=== PATIENT | male | born 1960 | race Caucasian/White ===

== ENCOUNTER 2019-02-14 09:58 | Outpatient (CLI) | payer OTHER, SELFPAY ==
--- NOTE | 2019-02-14 12:53 | DI.RAD_ITS ---
EXAM: XR HIP RT COMPLETE AP PELVIS INDICATION: r hip pain, M25.551. COMPARISON: No exams were available for comparison TECHNIQUE: 2D digital imaging was performed. FINDINGS: There is moderate narrowing of the right hip joint space. Mild subchondral sclerosis is seen in the right acetabulum. The left hip is well maintained. The sacroiliac joints are unremarkable. There i s mild sclerosis seen at the symphysis pubis. No acute fracture or dislocation is identified. The s oft tissues are unremarkable. IMPRESSION: Ryop-kq-zslritpv degenerative changes of the right hip.
--- NOTE | 2019-02-14 12:57 | DI.RAD_ITS ---
EXAM: XR LUMBAR SPINE COMPLETE INDICATION: right LBP and leg pain, M54.5. COMPARISON: No exams were available for comparison TECHNIQUE: 2D digital imaging was performed. FINDINGS: There is partial sacralization of L5. There is spondylolysis of L4. There is grade 1 spondylolisthe sis of L4 on L5. Endplate osteophytes throughout the lumbar spine. Disc space narrowing is seen at L1-L2 and L4-L5. There is a vacuum disc at L4-L5. There are degenerative changes of the facets thro ughout the lumbar spine. The bones are normally mineralized. No acute fracture or subluxation is pr esent. IMPRESSION: 1. Moderately severe degenerative changes in the lumbar spine. 2. L4 spondylolysis and grade 1 spondylolisthesis of L4 on L5.
== END 2019-02-14 10:18 ==
PROVIDERS: PCP Family Medicine; Visit Provider Family Medicine
DX: M25.551 Pain in right hip (principal); M16.11 Unilateral primary osteoarthritis, right hip; M54.5 Low back pain; M79.604 Pain in right leg; M43.06 Spondylolysis, lumbar region; M43.16 Spondylolisthesis, lumbar region; M47.816 Spondylosis without myelopathy or radiculopathy, lumbar region
CPT/HCPCS: 72110; 73502

== ENCOUNTER 2019-04-01 03:39 | Outpatient (CLI) | payer OTHER, SELFPAY ==
--- NOTE | 2019-04-01 07:45 | DI.RAD_ITS ---
EXAM: XR SHOULDER RT COMPLETE 2+V INDICATION: SHOULDER PAIN RT, M25.511. COMPARISON: No exams were available for comparison TECHNIQUE: 2D digital imaging was performed. FINDINGS: There are mild degenerative changes seen at the shoulder. The bones are intact and normally minerali zed. The soft tissues are unremarkable. IMPRESSION: Degenerative changes of the right shoulder.
--- NOTE | 2019-04-01 07:45 | DI.RAD_ITS ---
EXAM: XR KNEE RT 3V AP,LAT,AMOR INDICATION: Chronic pain right knee getting worse, M25.561. COMPARISON: No exams were available for comparison TECHNIQUE: 2D digital imaging was performed. FINDINGS: There are degenerative changes of the right knee characterized by moderate joint space narrowing and periarticular spurring in the medial femoral tibial joint space and periarticular spurring in the lat eral femoral tibial joint and the patellofemoral joint. IMPRESSION: Osteoarthritis of the right knee.
--- NOTE | 2019-04-01 07:45 | DI.RAD_ITS ---
EXAM: XR SHOULDER LT COMPLETE 2+V INDICATION: SHOULDER PAIN LT, M25.512. COMPARISON: XR SHOULDER RT COMPLETE 2+V from 04/01/2019 TECHNIQUE: 2D digital imaging was performed. FINDINGS: There are jhhf-hz-eldhedzx degenerative changes of the left knee characterized by periarticular spurr ing and subchondral sclerosis. The bones are intact. The soft tissues are unremarkable.
== END 2019-04-01 03:59 ==
PROVIDERS: PCP Family Medicine; Visit Provider Family Medicine
DX: M25.511 Pain in right shoulder (principal); M19.011 Primary osteoarthritis, right shoulder; M25.561 Pain in right knee; M17.11 Unilateral primary osteoarthritis, right knee; M25.512 Pain in left shoulder; M19.012 Primary osteoarthritis, left shoulder
CPT/HCPCS: 73562; 73030

== ENCOUNTER 2019-04-26 00:25 | Outpatient (CLI) | payer OTHER, SELFPAY ==
--- NOTE | 2019-04-26 10:45 | DI.MRI_ITS ---
EXAM: MR LUMBAR SPINE WO CLINICAL HISTORY: PAIN RADIATING DOWN RIGHT LEG, RT LUMBAR RADICULOPATHY, M54.16. TECHNIQUE: Multiplanar multisequence MRI of the Lumbar spine was performed. COMPARISON: RENAL COLIC WO CONTRAST from 07/08/2011 FINDINGS: Bones: The last intervertebral disc space is designated the L5/S1 level for the numbering purpose of this examination. The vertebral body heights are well maintained. There is L4 spondylolysis and gra de 1 spondylolisthesis of L4 on L5. This is stable compared to the CT scan from 07/08/2011. There are degenerative endplate signal changes at multiple levels of the lumbar spine. Cord: The conus tip ends at the L1 level. It is of normal size and signal intensity. L1-2: No focal disc herniation or central spinal canal stenosis is present. There is mild bilateral neural foraminal narrowing. L2-3: No focal disc herniation or central spinal canal stenosis is present. No significant right bethel ral foraminal stenosis is present. There is mild left neural foraminal stenosis. L3-4: No focal disc herniation or central spinal canal stenosis is present. There are mild degenera tive changes of the facets. There is mild bilateral neural foraminal narrowing. L4-5: No disc herniations or bulges are present. There are degenerative changes of the facets. The findings result in sfrj-sw-uughzhgu central spinal canal stenosis. There is severe right and moderat tiffanie severe left neural foraminal stenosis. There is disc desiccation present. L5-S1: No disc herniations or bulges are present. No significant central spinal canal or neural fora france stenosis is present. There are degenerative changes of the facets. Soft tissues: The visualized SI joints and sacrum are well maintained. The paraspinal soft tissues ar e unremarkable. IMPRESSION: 1. Multilevel degenerative changes throughout the lumbar spine. Findings result in multilevel centra l spinal canal and neural foraminal stenosis as described above. 2. L4 spondylolysis and grade 1 spondylolisthesis of L4 on L5. This in conjunction with the degenera tive changes causes central and neural foraminal stenosis. DATA REPOSITORY:
== END 2019-04-26 00:45 ==
PROVIDERS: PCP Family Medicine; Visit Provider Family Medicine
DX: M54.16 Radiculopathy, lumbar region (principal); M51.17 Intervertebral disc disorders with radiculopathy, lumbosacral region; M43.17 Spondylolisthesis, lumbosacral region; M43.07 Spondylolysis, lumbosacral region
CPT/HCPCS: 72148

== ENCOUNTER 2019-06-17 11:30 | Outpatient (CLI) | payer OTHER, SELFPAY ==
--- NOTE | 2019-06-17 | DI.RAD_ITS ---
EXAM: XR LUMBAR SPINE AP, LAT CLINICAL HISTORY: EVALUATE SLIP AT L 4-5 FOR EVIDENCE OF INSTABILITY. TECHNIQUE: 2D digital imaging was performed. COMPARISON: MR LUMBAR SPINE WO from 04/26/2019 FINDINGS: Lateral flexion and extension views of the lumbar spine were obtained. There is again seen L4 spondylolysis and grade 1 spondylolisthesis of L4 on L5. There is no change w ith flexion or extension when compared to the MRI of the lumbar spine from 04/26/2019. Moderate degen erative changes are present throughout the lumbar spine with disc space narrowing, endplate osteophyt es and facet arthropathy. IMPRESSION: Stable grade 1 spondylolisthesis of L4 on L5 with flexion and extension. DATA REPOSITORY: RADIATION DOSE DELIVERED:
== END 2019-06-17 11:50 ==
PROVIDERS: PCP Family Medicine; Visit Provider Physician Assistant Medical
DX: M43.16 Spondylolisthesis, lumbar region (principal); M47.816 Spondylosis without myelopathy or radiculopathy, lumbar region
CPT/HCPCS: 72100

== ENCOUNTER 2019-07-12 11:54 | Outpatient (CLI) | payer OTHER, SELFPAY ==
--- NOTE | 2019-07-12 12:38 | PDOC.PAIN ---
Pain Clinic Procedure Note Procedure Note Procedure Note: LUMBAR / SACRAL TRANSFORAMINAL INJECTION Pre-operative diagnosis: lumbar radiculopathy Post-operative diagnosis: same as above MONIKA PULLIAM has been referred [facility] the [facility] for a transforaminal nerve root block and steroid injection. COMMENTS: patient was evaluated by Ms Cassie Iqbal APRN in our pain clinic for right leg pain. He has a history of right hip osteoarthritis as well as degenerative L4-5 spondylolisthesis with right L4/L5 radiculopathy. He is here for a right L4 TFESI as both diagnostic and potentially therapeutic modality for his right leg pain. Patient was interviewed and the medical record reviewed. There were no medical, pharmacologic, radiographic or other structural contraindications to attempting fluoroscopically guided transforaminal nerve root block and epidural steroid injection. Risks and expected side effects as well as potential benefit of the procedure were reviewed and voiced concerns addressed. The printed consent form was signed and witnessed. Standard time-out procedure was performed. Patient was placed in the prone position on the fluoroscopy table and automated blood pressure cuff and pulse oximeter applied. Fluoroscopy was utilized to identify the RIGHT neural foramen between L4 and L5 . A skin eliu was made for the needle insertion site. A Chlorhexadine prep was carried out, and sterile drapes were applied. Local anesthesia was achieved in the skin and subcutaneous tissues. A 22 gauge 5'' curved tip spinal needle was then inserted, advanced with fluoroscopic guidance into the neural foramen, confirmed on the lateral view. After negative aspiration, 2 ml of Omnipaque 240 was injected confirming position in A/P and lateral views. This showed a good spread of dye transforaminally into the epidural space. There was no vascular update with contrast injection under continuous fluoroscopy and digital substraction. 15 mg of Dexamethasone was injected, followed by ~1 ml of 1% Xylocaine flush for the nerve root block, as well. There was no unusual discomfort expressed.The needle was withdrawn. The patient tolerated the procedure well. A Band-Aid was applied. Vital signs were stable throughout the procedure and were as recorded in nursing records. If given, dosages of intravenous drugs for anxiolysis and analgesia were documented in nursing records. Follow up plans and appointments were discussed. Post procedure instruction was given as documented in nursing records and patient was discharged in the care of an identified retail delivery driver. COMMENTS: Patient tolerated procedure well. Pre-procedure VAS score reported as 7 out of 10 and post-procedure VAS score reported as 1 out of 10. Please note that patient has L4-5 spondylolisthesis and skewed view of AP lumbar spine, an image was taken that includes the last floating rib as reference and counting of lumbar levels. I personally performed the entire procedure. Juvenal Olivarez MD Pain Management CC: David Comer MD
[2019-07-12 12:43] VITALS: BP 108/78; PULSE 74; RESP 16; TEMP 36.8; O2SAT 95
[2019-07-12] MEDS: Dexamethasone Sod. Phos./Pres-Free 10 MG/ML VIAL IJ (13:10)
[2019-07-12] MEDS: Omnipaque 240 MG/ML 50 ML BTL IJ (13:11)
[2019-07-12 13:13] VITALS: BP 121/78; PULSE 85; RESP 18; O2SAT 98
--- NOTE | 2019-07-12 13:18 | DI.RAD_ITS ---
EXAM: XR PAIN CLINIC LUMBAR SP 2V CLINICAL HISTORY: dx: Lumbar Radiculopathy. TECHNIQUE: Fluoroscopy was provided for the referring physician for guidance with performing pain cl inic injection procedure. COMPARISON: No exams were available for comparison FINDINGS: Please see procedure note for details. Fluoro time: 67.7 sec, 36.48 mGy RADIATION DOSE DELIVERED:
== END 2019-07-12 12:14 ==
PROVIDERS: PCP Family Medicine; Visit Provider Internal Medicine
DX: M54.16 Radiculopathy, lumbar region (principal)
CPT/HCPCS: 64483; 72100; Q9967

== ENCOUNTER 2019-08-02 10:03 | Outpatient (CLI) | payer OTHER, SELFPAY ==
--- NOTE | 2019-08-02 09:45 | DI.RAD_ITS ---
EXAM: XR SHOULDER RT COMPLETE 2+V INDICATION: pain and ? bicep tear. COMPARISON: CR XR SHOULDER LT COMPLETE 2+V from 04/01/2019 TECHNIQUE: 2D digital imaging was performed. FINDINGS: There is mild spurring at the tip of the acromion. The glenohumeral joint space is well maintained. There is moderate spurring at the glenoid and inferior humeral head as well as greater and lesser t uberosities. A calcification projects at the anteromedial aspect of the proximal humeral shaft. IMPRESSION: Moderate degenerative changes. DATA REPOSITORY: RADIATION DOSE DELIVERED:
== END 2019-08-02 10:23 ==
PROVIDERS: PCP Family Medicine; Referring Provider Family Medicine; Visit Provider Student in an Organized Health Care Education/Training Program
DX: M25.511 Pain in right shoulder (principal); M19.011 Primary osteoarthritis, right shoulder
CPT/HCPCS: 73030

== ENCOUNTER 2019-08-08 00:46 | Outpatient (CLI) | payer OTHER, SELFPAY ==
--- NOTE | 2019-08-08 10:45 | DI.MRI_ITS ---
EXAM: MR UPPER JOINT RT WO CLINICAL HISTORY: Right long head biceps tendon rupture, bursitis rt shoulder, S46.211A. TECHNIQUE: Multiplanar multisequence MRI was performed. CONTRAST MATERIAL: IV Contrast: mL of Dotarem contrast administered. COMPARISON: None. FINDINGS: There is a complete tear of the tendon of the long head of the biceps. The tendon is retracted and l ies approximately 15 cm proximal to the humeral epicondyles. There is fluid surrounding the torn ten don. The biceps muscle shows normal signal and size. There are degenerative signal changes at the acromioclavicular joint in the humeral head and in the g lenoid. No evidence of an occult fracture is seen. Hyperintense signal is seen in the supraspinatus tendon at its insertion site consistent with a parti al tear. There is tendinosis of the infraspinatus tendon. The teres minor tendon is unremarkable. Increased signal is seen in the subscapularis tendon at its insertion site. This may represent tendi nosis and/or partial tear. There are degenerative changes seen at the glenohumeral joint. There is fluid seen in the subacromial bursa. The rotator cuff muscles show normal signal and size. No significant fatty atrophy is seen. The tra nsverse ligament appears intact. The glenoid labrum appears grossly unremarkable on this noncontrast examination. IMPRESSION: 1. Tear and retraction of the long head of the biceps tendon. Tendon is seen along the diaphysis of the humerus approximately 15 cm proximal to the humeral epicondyles. 2. Partial tear of the supraspinatus tendon. 3. Partial tear and/or tendinosis of the subscapularis tendon.. DATA REPOSITORY:
== END 2019-08-08 01:06 ==
PROVIDERS: PCP Family Medicine; Visit Provider Student in an Organized Health Care Education/Training Program
DX: M25.511 Pain in right shoulder (principal); M75.51 Bursitis of right shoulder; S46.211A Strain of muscle, fascia and tendon of other parts of biceps, right arm, initial encounter; M75.101 Unspecified rotator cuff tear or rupture of right shoulder, not specified as traumatic; M75.81 Other shoulder lesions, right shoulder
CPT/HCPCS: 73221

== ENCOUNTER 2019-10-06 00:47 | Outpatient (CLI) | payer OTHER, SELFPAY ==
--- NOTE | 2019-10-06 07:45 | DI.RAD_ITS ---
EXAM: RF JOINT INJECTION FLUORO GUID CLINICAL HISTORY: PAIN,R HIP INJ UNDER FLUORO,M16.11,DEGENERATIVE JOINT DISEASE,M16.11. TECHNIQUE: 2D and realtime digital imaging was performed. COMPARISON: No exams were available for comparison FINDINGS: Fluoroscopy was provided for guidance with performing a right hip injection. Hard copy image shows a needle projecting at the margin of the right femoral head and injection of a small amount contrast. Please see procedure note for details. Fluoro time: 4 sec, 6.93 mGy RADIATION DOSE DELIVERED:
[2019-10-06] MEDS: Bupivacaine 0.5% Pres-Free 10 ML VIAL IJ (14:08)
[2019-10-06] MEDS: methylPREDNISolone ACETATE 40 MG/ML VIAL IM (14:09)
[2019-10-06] MEDS: Omnipaque 300 MG/ML 10 ML BTL IJ (14:09)
--- NOTE | 2019-10-06 14:15 | W.PROCNOTE ---
Date of service: 10/06/19 Time of Service: 14:01 Procedure Note Date of procedure: 10/06/19 Procedure: Right Hip Injection with Fluoroscopic Guidance Surgeon/Proceduralist/Physician: Imer Larsen Procedure Diagnosis: Right Hip Osteoarthritis Procedure Indications: Russ has had persistent pain of the RIGHT hip and groin as well as the low back. He is scheduled for lumbar spinal surgery but has concerns about the hip and hip pain. To serve as both diagnostic and therapeutic, an injection under fluoroscopy was recommended. I had discussed the risks of the procedure and the patient elected to proceed. Procedure Description: Russ was greeted in the flouroscopy room. The correct side was identified and the consent was reviewed with the patient and signed. The patient was then placed in the supine position on the fluoroscopy table. The RIGHT hip was then prepped with Chloraprep. The anterolateral injection starting point was identiifed by bony landmarks and fluoroscopy. The skin and soft tissue in the tract of the injection was anesthetized with 1% Lidocaine. A spinal needle was then inserted deep into the hip joint at the level of the lateral femoral neck under fluoroscopic guidance. A small amount of Omnipaque solution was injected to confirm intraarticular placement. Once confirmed, the hip was injected with 6cc of 0.5% Bupivicaine and 80mg of Depo-Medrol. A bandaid was placed on the injection site. The patient tolerated the procedure well.
== END 2019-10-06 01:07 ==
PROVIDERS: PCP Nurse Practitioner Family; Visit Provider Student in an Organized Health Care Education/Training Program
DX: M16.11 Unilateral primary osteoarthritis, right hip (principal); M25.551 Pain in right hip; R10.31 Right lower quadrant pain
CPT/HCPCS: 77002; J1030

== ENCOUNTER 2019-10-06 13:51 | Outpatient (REF) | payer OTHER, SELFPAY ==
[2019-10-06 14:25] LABS: HCT 41.8 % (40.0-50.0); HGB 13.2 g/dL (13.5-17.5); MCH 28.6 pg (27.0-33.0); MCHC 31.6 % (32.0-36.0); MCV 90.5 fL (80-95); MPV 9.8 fL (8.0-11.0); Platelet Count 281 10^3/uL (130-400); RBC 4.62 10^6/uL (4.36-5.78); RDW 14.1 % (11.8-14.1); RDW-SD 46.8 fL; WBC 5.16 10^3/uL (4.4-10.8)
[2019-10-06 14:41] LABS: ALT 26 U/L (16-63); AST 17 U/L (15-37); Albumin 3.8 g/dL (3.4-5.0); Alkaline Phosphatase 67 U/L (46-116); Anion Gap 7.9 mmol/L (3-11); BUN 17 mg/dL (7-18); Bilirubin, Total 0.4 mg/dL (0.2-1.0); CO2 28.1 mmol/L (21.0-32.0); CREATININE 0.92 mg/dL (0.70-1.30); Calcium 9.2 mg/dL (8.5-10.1); Calculated LDL 123 mg/dL (<100); Chloride 104 mmol/L (98-107); Cholesterol 187 mg/dL (<200); Glucose 109 mg/dL (74-106); HDL Cholesterol 55 mg/dL (40-60); Potassium 4.9 mmol/L (3.5-5.1); Sodium 140 mmol/L (136-145); Total Protein 7.1 g/dL (6.4-8.2); Triglyceride 49 mg/dL (<150)
[2019-10-06 14:49] LABS: Hemoglobin A1C 5.9 % (3.8-5.6)
== END 2019-10-06 14:11 ==
LOC: LBN 13:51
PROVIDERS: PCP Nurse Practitioner Family; Visit Provider Nurse Practitioner Family
DX: I10 Essential (primary) hypertension (principal); Z01.818 Encounter for other preprocedural examination
CPT/HCPCS: 80053; 80061; 85027; 83036

== ENCOUNTER 2019-10-11 00:02 | Outpatient (CLI) | payer OTHER, SELFPAY ==
--- NOTE | 2019-10-11 06:30 | DI.NM_ITS ---
APPROVED REPORT Exam: Pharmacologic Patient Location: Out-Patient Room/Bed: Stress Nurse: Mary Alex RN BMI: 36.40 Baseline Rhythm: Sinus Rhythm Comment: st elevation, consider inferior injury Indications: Pre-Operative CV Evaluation Medical History Medical History: HTN Cardiac Medications: Lisinopril/hctz, Allergies: amlodipine Cardiac Risk Factors: HTN, FHX of CAD Pretest Chest Pain Characteristics: No chest pain Exercise History: Physically active Physical Disabilities: Hips, Back Lung Sounds: Clear to auscultation Heart Sounds: Regular Stress Test Details Test: Pharmacologic stress testing performed using 0.4 mg of regadenoson per 5 mL given IV over 10 s econds. Nuclear Acquisition: Rest Tc-99m/Stress Tc-99m 1 day Rest Isotope: Tc-99m Sestamibi. Dose: 11.8 Date: 10/11/2019 Injection Time: 0845 Stress Isotope: Tc-99m Sestamibi. Dose: 34.5 Date: 10/11/2019 Injection Time: 1015 HR Resting HR Supine: 66 bpm Max Heart Rate (APMHR): 161 bpm Target HR (85% APMHR): 136 bpm Max HR Achieved: 98 bpm % of APMHR: 60 Recovery HR: 72 bpm HR response to stress: Normal HR response to stress BP Resting BP Supine: 130/90 mmHg Max BP: 134/90 mmHg Recovery BP: 134/88 mmHg BP response to stress: Normal blood pressure response to stress. ECG Resting ECG: Sinus Rhythm st elevation, consider inferior injury Ectopy: rare apc Stress ECG: Sinus Rhythm Arrhythmia: None Recovery ECG: Sinus Rhythm Clinical Reason for Termination: vs returned to baseline Stress Symptoms: Headache Exercise duration: 6 min01 sec Exercise capacity: 1 METs Stress ECG Conclusion 1. This was a pharmacological stress test. 2. The patient had no symptom suggestive of ischemia. 3. The EKG portion of this exam was nondiagnostic. Critical Notification Critical Value: No MPI Conclusion Ejection fraction was 42% with stress. There were no wall motion abnormalities. There is no evidence of ischemia on the imaging portion of the exam. This represents a normal SPECT stress test. Radiologist Interpretation Radiologist agrees with Road Design Draftsperson's Interpretation. Radiologist Interpretation by: Hardik Reynolds MD Interpretation Date/Time: 10/11/2019 14:46:09
[2019-10-11] MEDS: Regadenoson 0.4 MG/5 ML SYR IVP (10:46)
== END 2019-10-11 00:22 ==
PROVIDERS: PCP Nurse Practitioner Family; Visit Provider Nurse Practitioner Family
DX: R94.31 Abnormal electrocardiogram [ECG] [EKG] (principal); Z01.818 Encounter for other preprocedural examination; Z82.49 Family history of ischemic heart disease and other diseases of the circulatory system; I10 Essential (primary) hypertension
CPT/HCPCS: 78452; 93017; J2785

== ENCOUNTER 2020-02-16 01:32 | Outpatient (CLI) | payer OTHER, SELFPAY ==
--- NOTE | 2020-02-16 14:25 | DI.RAD_ITS ---
EXAM: RF JOINT INJECTION FLUORO GUID CLINICAL HISTORY: R HIP INJ UNDER FLUORO, DJD RT HIP, M16.11, PRIMARY OA RT HIP TECHNIQUE: 2D and realtime digital imaging was performed. CONTRAST MATERIAL: Refer to procedure report. COMPARISON: No exams were available for comparison FINDINGS: Fluoroscopy was provided for orthopedic during right hip joint injection. Please refer to the proced ure report for complete details. Distal tip needle is position at the junction of the femoral head a nd neck. Intra-articular contrast evident Fluoro time: 6 seconds IMPRESSION:
[2020-02-16] MEDS: Omnipaque 300 MG/ML 10 ML BTL IJ (14:39)
[2020-02-16] MEDS: methylPREDNISolone ACETATE 80 MG/ML VIAL IM (14:41)
[2020-02-16] MEDS: Bupivacaine 0.5% Pres-Free 10 ML VIAL 6 ML IV (14:41)
--- NOTE | 2020-02-16 21:26 | W.PROCNOTE ---
Date of service: 02/16/20 Time of Service: 14:26 Procedure Note Date of procedure: 02/16/20 Procedure: Right Hip Injection with Fluoroscopic Guidance Surgeon/Proceduralist/Physician: Imer Larsen Procedure Diagnosis: Right Hip Osteoarthritis Procedure Indications: Long has had persistent pain of the RIGHT hip and groin. Noninvasive measures have been tried. To serve as both diagnostic and therapeutic, an injection under fluoroscopy was recommended. I had discussed the risks of the procedure and the patient elected to proceed. Procedure Description: Long was greeted in the flouroscopy room. The correct side was identified and the consent was reviewed with the patient and signed. The patient was then placed in the supine position on the fluoroscopy table. The RIGHT hip was then prepped with Chloraprep. The anterolateral injection starting point was identiifed by bony landmarks and fluoroscopy. The skin and soft tissue in the tract of the injection was anesthetized with 1% Lidocaine. A spinal needle was then inserted deep into the hip joint at the level of the lateral femoral neck under fluoroscopic guidance. A small amount of Omnipaque solution was injected to confirm intraarticular placement. Once confirmed, the hip was injected with 6cc of 0.5% Bupivicaine and 80mg of Depo-Medrol. A bandaid was placed on the injection site. The patient tolerated the procedure well and noted improvement in pre-injection pain.
== END 2020-02-16 01:52 ==
PROVIDERS: PCP Nurse Practitioner Family; Visit Provider Student in an Organized Health Care Education/Training Program
DX: M16.11 Unilateral primary osteoarthritis, right hip (principal); M25.551 Pain in right hip; R10.31 Right lower quadrant pain
CPT/HCPCS: 20610; 77002; J1040

== ENCOUNTER 2020-05-31 02:01 | Outpatient (CLI) | payer OTHER, SELFPAY ==
--- NOTE | 2020-05-31 08:30 | DI.RAD_ITS ---
EXAM: RF JOINT INJECTION FLUORO GUID CLINICAL HISTORY: R HIP INJ UNDER FLUORO,degenerative joint disease rt hip, m16.11,OA RT HIP TECHNIQUE: Fluoroscopy provided. Radiologist not present. CONTRAST MATERIAL: None COMPARISON: No exams were available for comparison FINDINGS: Fluoroscopy was provided for Dr. Larsen during therapeutic injection of right hip. Submitted image(s) reveal needle tip at the lateral aspect of the femoral head. Intra-articular cont rast noted. Please refer to the procedure report for complete details. Fluoro time: 5 seconds. Cumulative Dose: 1.18 mGy IMPRESSION: RADIATION DOSE DELIVERED: suresh Solis= mGy
--- NOTE | 2020-05-31 14:48 | W.PROCNOTE ---
Date of service: 05/31/20 Time of Service: 14:48 Procedure Note Date of procedure: 05/31/20 Procedure: Right Hip Injection with Fluoroscopic Guidance Surgeon/Proceduralist/Physician: Imer Larsen Procedure Diagnosis: Right Hip Osteoarthritis Procedure Indications: Russ has had persistent pain of the RIGHT hip and groin. Noninvasive measures have been tried. He has had previous injections with good relief of symptoms. Therefore, an injection under fluoroscopy was recommended. I had discussed the risks of the procedure and the patient elected to proceed. Procedure Description: Russ was greeted in the flouroscopy room. The correct side was identified and the consent was reviewed with the patient and signed. The patient was then placed in the supine position on the fluoroscopy table. The RIGHT hip was then prepped with Chloraprep. The anterolateral injection starting point was identiifed by bony landmarks and fluoroscopy. The skin and soft tissue in the tract of the injection was anesthetized with 1% Lidocaine. A spinal needle was then inserted deep into the hip joint at the level of the lateral femoral neck under fluoroscopic guidance. A small amount of Omnipaque solution was injected to confirm intraarticular placement. Once confirmed, the hip was injected with 6cc of 0.5% Bupivicaine and 80mg of Depo-Medrol. A bandaid was placed on the injection site. The patient tolerated the procedure well and noted improvement in pre-injection pain.
[2020-05-31] MEDS: Omnipaque 300 MG/ML 10 ML BTL IJ (14:52)
[2020-05-31] MEDS: Bupivacaine 0.5% Pres-Free 10 ML VIAL IJ (14:53)
[2020-05-31] MEDS: methylPREDNISolone ACETATE 80 MG/ML VIAL IM (14:54)
== END 2020-05-31 02:21 ==
PROVIDERS: PCP Nurse Practitioner Family; Visit Provider Student in an Organized Health Care Education/Training Program
DX: M16.11 Unilateral primary osteoarthritis, right hip (principal); M25.551 Pain in right hip
CPT/HCPCS: 20610; 77002; J1040

== ENCOUNTER 2020-12-06 01:54 | Outpatient (CLI) | payer OTHER, SELFPAY ==
--- NOTE | 2020-12-06 08:15 | DI.RAD_ITS ---
Exam(s) RF JOINT INJECTION FLUORO GUID EXAM: RF JOINT INJECTION FLUORO GUID CLINICAL HISTORY: R HIP INJ UNDER FLUORO,DEGENERATIVE JOINT DISEASE RT HIP, M16.11 TECHNIQUE: Fluoroscopy provided. Radiologist not present. CONTRAST MATERIAL: None COMPARISON: No exams were available for comparison FINDINGS: Fluoroscopy was provided for Dr. Larsen during therapeutic right hip injection. Submitted image(s) reveal lateral approach with needle tip at the junction of the femoral head and ne ck Please refer to the procedure report for complete details. Cumulative Dose: suresh Solis=0.75 mGy IMPRESSION: RADIATION DOSE DELIVERED:
[2020-12-06] MEDS: methylPREDNISolone ACETATE 80 MG/ML VIAL IM (14:33)
[2020-12-06] MEDS: Omnipaque 300 MG/ML 10 ML BTL IJ (14:34)
--- NOTE | 2020-12-06 14:34 | W.PROCNOTE ---
Date of service: 12/06/20 Time of Service: 14:34 Procedure Note Date of procedure: 12/06/20 Procedure: Right Hip Injection with Fluoroscopic Guidance Surgeon/Proceduralist/Physician: Imer Larsen Procedure Diagnosis: Right Hip Osteoarthritis Procedure Indications: Long has had persistent pain of the RIGHT hip and groin. Noninvasive measures have been tried. To serve as both diagnostic and therapeutic, an injection under fluoroscopy was recommended. I had discussed the risks of the procedure and the patient elected to proceed. Procedure Description: Long was greeted in the flouroscopy room. The correct side was identified and the consent was reviewed with the patient and signed. The patient was then placed in the supine position on the fluoroscopy table. The RIGHT hip was then prepped with Chloraprep. The anterolateral injection starting point was identiifed by bony landmarks and fluoroscopy. The skin and soft tissue in the tract of the injection was anesthetized with 1% Lidocaine. A spinal needle was then inserted deep into the hip joint at the level of the lateral femoral neck under fluoroscopic guidance. A small amount of Omnipaque solution was injected to confirm intraarticular placement. Once confirmed, the hip was injected with 6cc of 0.5% Bupivicaine and 80mg of Depo-Medrol. A bandaid was placed on the injection site. The patient tolerated the procedure well and noted improvement in pre-injection pain.
[2020-12-06] MEDS: Bupivacaine 0.5% Pres-Free 10 ML VIAL 5 ML IJ (14:35)
== END 2020-12-06 02:14 ==
PROVIDERS: PCP Nurse Practitioner Family; Visit Provider Student in an Organized Health Care Education/Training Program
DX: M16.11 Unilateral primary osteoarthritis, right hip (principal); M25.551 Pain in right hip; R10.31 Right lower quadrant pain
CPT/HCPCS: 20610; 77002; J1040

== ENCOUNTER 2021-04-18 08:13 | Outpatient (CLI) | payer OTHER, SELFPAY ==
--- NOTE | 2021-04-18 08:00 | DI.RAD_ITS ---
Exam(s) XR PELVIS AP EXAM: XR PELVIS AP CLINICAL HISTORY: right KEARA. TECHNIQUE: 2D digital imaging was performed. COMPARISON: CR XR HIP RT COMPLETE AP PELVIS from 02/14/2019 RF RF JOINT INJECTION FLUORO GUID from 12/06/2020 FINDINGS: BONES: No acute fracture is present. No bony destructive lesion is seen. JOINTS: No dislocation present. There is obliteration of the superior right hip joint space, with a b one-on-bone appearance. There is subchondral cyst formation and spurring. There is some flattening of the right femoral head as well as remodeling of the superior acetabulum. The left hip joint space is well maintained. There is mild acetabular spurring on the left. SOFT TISSUE: Vasectomy clips. Template ball in place. IMPRESSION: End-stage degenerative changes of the right hip. DATA REPOSITORY: RADIATION DOSE DELIVERED:
== END 2021-04-18 08:14 | disposition home or self-care (01) ==
LOC: DIORS 08:13
PROVIDERS: PCP Nurse Practitioner Family; Referring Provider Nurse Practitioner Family; Visit Provider Physician Assistant
DX: M25.551 Pain in right hip (principal); M16.11 Unilateral primary osteoarthritis, right hip
CPT/HCPCS: 72170

== ENCOUNTER 2021-04-22 04:29 | Outpatient (CLI) | payer OTHER, SELFPAY ==
[2021-04-22 08:45] LABS: HCT 35.1 % (40.0-50.0); HGB 10.7 g/dL (13.5-17.5); MCH 24.4 pg (27.0-33.0); MCHC 30.5 % (32.0-36.0); MCV 80.1 fL (80-95); MPV 8.8 fL (8.0-11.0); Platelet Count 343 10^3/uL (130-400); RBC 4.38 10^6/uL (4.36-5.78); RDW 15.5 % (11.8-14.1); RDW-SD 44.7 fL; WBC 5.42 10^3/uL (4.4-10.8)
[2021-04-22 09:38] LABS: Source Nasal/Nares
[2021-04-22 10:34] LABS: Anion Gap 8.8 mmol/L (3-11); BUN 20 mg/dL (7-18); CO2 27.2 mmol/L (21.0-32.0); CREATININE 0.7 mg/dL (0.70-1.30); Calcium 8.6 mg/dL (8.5-10.1); Chloride 105 mmol/L (98-107); Glucose 102 mg/dL (74-106); Potassium 4.3 mmol/L (3.5-5.1); Sodium 141 mmol/L (136-145)
[2021-04-22 12:56] LABS: COVID-19 PCR Negative (Negative)
== END 2021-04-22 04:30 | disposition home or self-care (01) ==
LOC: LBO 04:30
PROVIDERS: PCP Nurse Practitioner Family; Visit Provider Student in an Organized Health Care Education/Training Program
DX: M25.551 Pain in right hip (principal); M16.11 Unilateral primary osteoarthritis, right hip; Z20.822 Contact with and (suspected) exposure to COVID-19; Z01.818 Encounter for other preprocedural examination; Z01.812 Encounter for preprocedural laboratory examination
CPT/HCPCS: 36415; 80048; 85027; 86850; 86900; 86901; 87635

== ENCOUNTER 2021-04-24 06:07 | Day surgery (SDC) | payer OTHER, SELFPAY ==
[2021-04-24] VITALS (9 sets, daily range): BP systolic 112–139; BP diastolic 68–93; PULSE 71–96; RESP 16–20; TEMP 36.2–36.7; O2SAT 93–98; BMI 36.8
--- NOTE | 2021-04-24 06:24 | ANES.PREOP_ITS ---
General Info Date of Service Date Performed: 04/24/21 Height: 6 ft 1 in Weight: 126.552 kg Body Mass Index (BMI): 36.8 Surgical Procedure: Operation Date: 04/24/21 07:50 Proposed Procedure Side Surgeon p Hip Total Hip Anterior Right Imer Larsen MD Meds Allergies and Home Medications Allergies Allergy/AdvReac Type Severity Reaction Status Date / Time amlodipine AdvReac Intermediate Swelling Verified 04/24/21 06:16 of feet on 5 mg Home Medication Medication Instructions Recorded multivitamin 1 ea PO DAILY 11/23/12 sildenafil 100 mg tablet (Viagra) 0.5 - 1 tab PO As Directed #6 06/16/14 tab-cap glucosamine 500 1 cap PO TID cap 10/06/19 bg-crpmnvnkf-zjxkkjbw comp 400 mg-D3 667 unit-C-Mn cap omeprazole 20 mg capsule,delayed 20 mg PO .Every other day #90 cap 03/02/20 release lisinopril 10 1 tab PO DAILY #90 tab-cap 04/10/21 mg-hydrochlorothiazide 12.5 mg tablet cyanocobalamin (vitamin B-12) 1,000 mcg PO DAILY 04/23/21 1,000 mcg tablet (Vitamin B-12) Current Visit Medications: Current Medications Generic Name Dose Route Start Last Admin Trade Name Freq PRN Reason Stop Dose Admin Acetaminophen 1,000 mg 04/24/21 06:00 Acetaminophen 500 Mg Tab PO PREOP CHRISTIANO Celecoxib 400 mg 04/24/21 06:00 Celecoxib 200 Mg Cap PO PREOP CHRISTIANO Tranexamic Acid 1,000 mg/ 60 mls @ 360 mls/hr 04/24/21 06:00 Sodium Chloride IV PREOP CHRISTIANO Ringer's Solution 1,000 mls @ 80 mls/hr 04/24/21 06:00 IV 05/16/21 23:59 INFUSION CHRISTIANO Cefazolin Sodium 3,000 mg/ 100 mls @ 200 mls/hr 04/24/21 06:00 Sodium Chloride IVPB 04/24/21 16:00 PREOP CHRISTIANO IV Miscellaneous Supplies 1 each 04/24/21 06:00 Iv Access IV 05/16/21 23:59 DIRECTED CHRISTIANO Sodium Chloride 0 ml 04/24/21 06:00 Normal Saline Flush 10 Ml Syr IV 05/16/21 23:59 PRN PRN Sodium Chloride 0 ml 04/24/21 06:00 Normal Saline 10 Ml Vial IJ 05/16/21 23:59 DIRECTED PRN Sterile Water 0 ml 04/24/21 06:00 Water,Injection,Sterile 10 Ml Vial IJ 05/16/21 23:59 DIRECTED PRN PFSH Active Problems Active Problems: Problem Status Onset Code Carpal tunnel syndrome of right wrist G56.01 Carpal tunnel syndrome of left wrist G56.02 Prediabetes R73.03 Hyperlipidemia E78.5 BPH without urinary obstruction N40.0 Right lumbar radiculopathy M54.16 Essential hypertension I10 GERD (gastroesophageal reflux disease) K21.9 Degenerative joint disease of right hip M16.11 Osteoarthritis of right knee M17.11 Surgical History Surgical History History of esophagogastroduodenoscopy (EGD) (07/29/13) History of lumbar surgery 10/2019-s/p decompression l3-L5, [facility]sx at [facility] S/P ear surgery ear drum removal and replacement S/P right knee arthroscopy (~10/2000) meniscus repair S/P tonsillectomy Tobacco Smoking/Tobacco Use Status: Never Alcohol Alcohol Intake: current Alcohol intake frequency: a few times a month Alcohol type: other Substance Use Substance use: Never Substance use type: does not use Vital Signs and Lab Results Vital Signs Most Recent Vital Signs in EMR: Temp Pulse Resp BP Pulse Ox 36.7 C 87 18 139/93 H 98 04/24/21 06:30 04/24/21 06:30 04/24/21 06:30 04/24/21 06:30 04/24/21 06:30 Lab Results Blood Type / Crossmatch: Patient ABO/Rh O Positive 04/22/21 Antibody Screen NEGATIVE 04/22/21 Complete Blood Count: White Blood Count 5.42 10^3/uL (4.4-10.8) 04/22/21 08:36 04/22/21 Red Blood Count 4.38 10^6/uL (4.36-5.78) 04/22/21 08:36 04/22/21 Hemoglobin 10.7 g/dL (13.5-17.5) L 04/22/21 08:36 04/22/21 Hematocrit 35.1 % (40.0-50.0) L 04/22/21 08:36 04/22/21 Platelet Count 343 10^3/uL (130-400) 04/22/21 08:36 04/22/21 Complete Metabolic Panel: Sodium Level 141 mmol/L (136-145) 04/22/21 08:36 04/22/21 Potassium Level 4.3 mmol/L (3.5-5.1) 04/22/21 08:36 04/22/21 Chloride Level 105 mmol/L (98-107) 04/22/21 08:36 04/22/21 Carbon Dioxide Level 27.2 mmol/L (21.0-32.0) 04/22/21 08:36 04/22/21 Blood Urea Nitrogen 20 mg/dL (7-18) H 04/22/21 08:36 04/22/21 Creatinine 0.7 mg/dL (0.70-1.30) 04/22/21 08:36 04/22/21 Estimated GFR/1.73 m2 >= 60.00 (mL/min/1.73m2) 04/22/21 08:36 04/22/21 Calcium Level 8.6 mg/dL (8.5-10.1) 04/22/21 08:36 04/22/21 Glucose Level 102 mg/dL (74-106) 04/22/21 08:36 04/22/21 Liver Function Panel: No Data to Display Coagulation Panel: No Data to Display Cardiac Panel: No Data to Display Arterial Blood Gas: No Data to Display Venous Blood Gas: No Data to Display Pancreas Panel: No Data to Display Thyroid Panel: No Data to Display Infectious Disease: Coronavirus (COVID-19)(PCR) Negative (Negative) 04/22/21 08:43 04/22/21 Coronavirus 2019 Source Nasal/Nares 04/22/21 08:43 04/22/21 Blood Cultures: No Data to Display Toxicology Panel: No Data to Display Imaging and Studies Imaging and Studies Study information below may be from another EMR and interpreted by another provider. Please see original notes in EMR for more complete details. EKG Summary: 2020: sinus rhythm. Stress Test Summary: 2020: no symptoms of ischemia, non-diagnostic EKG. MPI EF 42%, no WMA, no evidence of ischemia. Anesthesia Assessment and Plan Anesthesia History Personal History: No History of Anesthesia Complications Family History: No Family History of Anesthesia Complications Exercise Tolerance Exercise Tolerance: Metabolic Equivalents>4 Cardiac & Pulmonary Exam Cardiac Exam: Normal S1/S2 Heart Sounds Pulmonary Exam: Clear Bilateral Breath Sounds Implantable Cardiac Device Does patient have a Pacemaker or an ICD?: No Airway Exam Known Difficult Airway: No Mallampati Class: 2 Mouth Opening: Normal (> 3cm) Thyromental Distance: Greater than 3 cm Neck Range of Motion: Limited ROM Neck Circumference: Normal Teeth Condition: Normal Dentition ASA Classification ASA Score: ASA 2 Emergency Case?: No NPO Status NPO Status: NPO Clears >2 hours, Solids >8 hours Anesthesia Plan Resuscitation Status: Full Code Anesthesia Technique: Spinal Anesthesia Airway Planned: Natural Airway Monitors Used: Standard Monitors Preoperative Comments:: 61 yo male for right KEARA. Sig PMHx: low back pain (l3-5 right facetectomy), HTN (lisinopril), GERD (omeprazole), never smoker, occ EtOH. Previous Anes: glide S4 grade 1, not masked.
[2021-04-24] MEDS: Acetaminophen 500 MG TAB 1000 MG PO (06:25)
[2021-04-24] MEDS: Celecoxib 200 MG CAP 400 MG PO (06:25)
[2021-04-24] MEDS: Lactated Ringers 1,000 ML 80 ML IV (06:54)
--- NOTE | 2021-04-24 07:12 | W.PM.DS.N ---
DS: Diagnosis Discharge Diagnosis (1) Degenerative joint disease of right hip: Status: Acute Discharge Plan Disposition Patient Disposition: HOME Condition: Good Discharge Details Reason For Visit: Right Hip DJD Attending Provider: Imer Larsen Primary Care Provider: Ragini Tinoco Home Meds and New Rx's Prescriptions: New acetaminophen 500 mg tablet 1,000 mg PO Q8H PRN (Reason: pain) Qty: 90 3RF celecoxib 200 mg capsule 200 mg PO BID PRN (Reason: pain) Qty: 60 1RF aspirin 81 mg tablet,delayed release (DR/EC) 81 mg PO BID Qty: 60 0RF docusate sodium [Colace] 100 mg capsule 100 mg PO BID PRNQty: 10 0RF oxycodone 5 mg tablet 5 mg PO Q4H Qty: 12 0RF Continued multivitamin 1 EACH tablet 1 ea PO DAILY 0RF omeprazole 20 mg capsule,delayed release(DR/EC) 20 mg PO .Every other day Qty: 90 4RF lisinopril-hydrochlorothiazide 10-12.5 mg tablet 1 tab PO DAILY Qty: 90 4RF cyanocobalamin (vitamin B-12) [Vitamin B-12] 1,000 mcg Tablet 1,000 mcg PO DAILY 0RF Discontinued bemu-espemb-vmdbuntw-D3-C-Mn 500-400-667 mg-mg-unit capsule 1 cap PO TID 0RF Label Comments: pt reports he hasnt taken for one year sildenafil [Viagra] 100 MG tablet 0.5 - 1 tab PO As Directed Qty: 6 5RF Label Comments: pt reports he has never taken Rx Instructions: 1/2 to 1 tab 2 hours before intercourse Discharge Instructions Additional Instructions: Total Hip Discharge Instructions Activity: The most important activity is to walk. You should try to take short walks a few times a day. You have no restrictions on movement or positioning, but do not try to force what you do. You will find some stiffness and weakness with hip flexion (lifting your knee). Do not try to strengthen this too early, continue to practice walking and stairs and this will come. - Outpatient physical therapy can be helpful to help return you to a normal gait and improve your flexibility and strength. This can start around 2 weeks. For some patients, it?s not necessary. Usually this is determined at the time of discharge or at the first post-operative visit. - You should wear the EDILMA hose on both legs for 2 weeks. Dressing: Keep the surgical dressing in place for at least one week. After the first week it may be removed and replace with light gauze and tape or nothing. It may get wet after 3 days but avoid soaking the dressing. If it gets wet, just lightly pat dry. It is important to always keep some gauze between skin folds, especially when you are sitting. Spend some time with the wound exposed when you are lying flat as the incision does wrinkle onto itself. Medications: - You should take Tylenol and an anti-inflammatory Celebrex as your primary pain control medications. If the Celebrex is too expensive or not covered, please call the office for another alternative (Advil/Ibuprofen or Naproxen/Aleve). - You have been prescribed a stronger pain medication Oxycodone for breakthrough pain, take as needed as prescribed. This is used mostly at night. While you have had some issues with pain medication in the past, this is usually necessary for a few doses. If you have any major issues/side effects with this, please contact Dr. Larsen and his team. - You should also continue your stomach acid reduction agent Omeprazole to help reduce stomach acid and reflux. I recommend that you take this daily for the first few weeks after surgery. - You will be taking Aspirin 81mg twice a day for DVT prevention unless instructed otherwise. - If you have constipation you should take Colace or Miralax (both svoa-zih-bxyhggz). It takes most people 3-4 days to have a bowel movement. Follow-up: 2 weeks If you have any acute concerns or questions, please do not hesitate to contact the office at [phone]. You may contact Dr. Larsen with any questions after hours through the hospital at [phone] or on his cell phone at [phone]. Referrals: Imer Larsen MD [ [facility] STAFF PHYSICIAN] - Activity:: Activity as Tolerated Shower/Bathe:: Cover Diet:: As Tolerated Discharge Orders Discharge Orders: Discharge Order (Routine); Ordered 04/24/21 Ordered By: Imer Larsen DS: Summary Time Spent with Patient providing and/or coordinating discharge services: Less than 30 minutes Status at Discharge Functional status at discharge: uses cane/walker Overall status at discharge: patient is progressing back to baseline Mental Status: mental status grossly normal Speech and Movement: speech and movement normal Mood: congruent mood Affect: normal affect Exam Psych Mental Status: mental status grossly normal Speech and Movement: speech and movement normal Mood: congruent mood Affect: normal affect DS: Data Vitals/I&O Vitals and I&O: Vital Signs Temperature 36.7 C 04/24/21 06:30 Pulse 87 04/24/21 06:30 Pulse Rhythm Regular 04/24/21 06:30 Respiratory Rate 18 04/24/21 06:30 Respiratory Depth Normal 04/24/21 06:30 Blood Pressure 139/93 H 04/24/21 06:30 Pulse Oximetry 98 04/24/21 06:30 Oxygen Delivery Method Room Air 04/24/21 06:30 Oxygen Flow Rate 0 04/24/21 06:30 Pain Level 0 04/24/21 06:30 Intake & Output 04/23/21 04/23/21 04/24/21 11:59 23:59 11:59 Weight 126.552 kg 126.552 kg PFSH All Active Problems Carpal tunnel syndrome of right wrist (Acute) Carpal tunnel syndrome of left wrist (Acute) Prediabetes (Chronic) 5.9 in 09/2019 Hyperlipidemia (Chronic) BPH without urinary obstruction (Chronic) Right lumbar radiculopathy (Chronic) Essential hypertension (Chronic) GERD (gastroesophageal reflux disease) (Chronic) Degenerative joint disease of right hip (Acute) Osteoarthritis of right knee (Chronic) Surgical History History of esophagogastroduodenoscopy (EGD) (07/29/13) History of lumbar surgery 10/2019-s/p decompression l3-L5, neurosx at [facility] S/P ear surgery ear drum removal and replacement S/P right knee arthroscopy (~10/2000) meniscus repair S/P tonsillectomy Family History Mother , at 83 from right hip replacement infection Breast cancer Hypertension Father , in his late 90s Heart disease Asthma Hypertension Sister No problems noted. Sister Breast cancer Brother Essential hypertension Brother No problems noted. Maternal Grandfather Heart disease Maternal Grandmother Bladder cancer Heart disease Paternal Grandfather No problems noted. Paternal Grandmother Heart disease Daughter No problems noted. Daughter No problems noted. Daughter No problems noted. Son No problems noted. Son No problems noted. Son No problems noted. Social History Smoking/Tobacco Use Status: Never Smoking risk assessment performed?: Yes Alcohol Intake: current Alcohol Intake frequency: a few times a month Alcohol type: other Drug use: Never Substance use type: does not use Household members: children Housing: house Number of Children: 6 number of grandchildren: 5 current occupation: [employer] Current gender identity: male What type of physical activity do you participate in: independent ambulation Do you feel safe at home: Yes (spouse in room) Do you feel safe in your relationship?: Yes
[2021-04-24] MEDS: ceFAZolin 3,000 MG in Normal Saline 100 ML 200 MG IVPB (07:29)
[2021-04-24] MEDS: Bupivacaine 0.25% Pres-Free 30 ML VIAL (08:02)
[2021-04-24] MEDS: Ketorolac 30 MG/ML VIAL (08:03)
--- NOTE | 2021-04-24 08:56 | DI.RAD_ITS ---
Exam(s) XR HIP RT IN OR EXAM: XR HIP RT IN OR CLINICAL HISTORY: right total hip TECHNIQUE: 2D and realtime digital imaging was performed. COMPARISON: No exams were available for comparison FINDINGS: C-arm fluoroscopy was utilized by Dr. Larsen during placement of right hip prosthesis. Hard copies show femoral and acetabular components in position. IMPRESSION: RADIATION DOSE DELIVERED: suresh Solis=2.82 mGy
--- NOTE | 2021-04-24 09:38 | W.PM.OP ---
Date of service: 04/24/21 Time of Service: 09:38 Operative Note Operative Note DATE OF PROCEDURE: 04/24/21 PRE-OP DIAGNOSIS: Right Hip Osteoarthritis POST-OP DIAGNOSIS: same PROCEDURE: Right Anterior Total Hip Arthroplasty with Intraoperative Navigation SURGEON: Imer Larsen PIN CLEANER: Aneta Stanley ANESTHESIA TYPE: Spinal Refer to Anesthesia Record ESTIMATED BLOOD LOSS: 400 PATHOLOGY: none sent COMPLICATIONS: None Patient was transported to: PACU Patient's condition: stable Implants: 1. Depuy [place] Acetabular Component, 58mm 2. Depuy Acetabular Liner, [id number] 3. Depuy Actis Standard Collared Femoral Stem, Size 10 4. Depuy Altrx Ceramic Femoral Head, Size 36+8.5mm Indications: I have seen Russ in clinic for symptoms of hip arthritis, confirmed with radiographic findings. He has exhausted nonoperative methods and was having significant limitations in daily function and desired better function and less pain. I discussed the technical details of a hip replacement. I explained the risks of the procedure to include, but not limited to, bleeding, infection, pain, stiffness, fracture, damage to nerves and vessels, damage to muscles and tendons, loosening, instability, leg length inequality, need for repeat procedure, blood clot and cardiopulmonary demise. Despite these risks, Russ elected to proceed. Findings: There was significant signs of arthritis throughout the hip. There is notable deformity about the femoral head with large osteophytes circumferentially around the head and a large flattened section of the superior weightbearing portion of the femoral head. Procedure Description: Russ was greeted in the preoperative holding area where the correct side was identified and marked. The consent was reviewed with the patient and signed. The history and physical was updated. All questions were answered. He was taken back to the operating room. A spinal anesthestic was then administered. The feet were wrapped with cast padding and Coban and then placed into the boot liners and then into the boots. Care was taken to protect the skin and make sure the heels were fully down and the boots were stable. The patient was then positioned onto the HANA table. Both legs were held in a neutral position. SCDs were applied. The patient was then slid down onto a peroneal post. Prophylactic antibiotics in the form of Cefazolin were administered. 1g of Tranxemic Acid was given intravenously within 30 minutes of incision. The right leg was then prepped with Chloraprep and draped in a standard fashion. A second prep with Chloraprep was performed prior to placement of a shower-curtain type drape with Iodine impregnated skin protection. A timeout to confirm correct identity, side and site, procedure, allergies, anesthesia, and medical concerns was performed. An obliquely oriented incision was made starting lateral to the ASIS and running distal over the Tensor Fascia Sharifa (TFL) muscle belly toward the fibular head, approximately 10cm. The skin and soft tissue was dissected sharply, through Christina?s fascia, and to the fascia of the TFL. With the fascia and superior border of the IT band identified, the fascia was incised with a new knife just above any perforators from the IT band. The TFL muscle belly was bluntly dissected away from the fascia and moved laterally. The fat between TFL and rectus was identified to ensure the dissection was not within the TFL. Blunt dissection created space between abductors and the capsule and retractor was placed over the lateral femoral neck. The fibers of the rectus femoris tendon were identified and these were freed from the anterior capsule. A second cobra retractor was placed around the medial femoral neck. The TFL was further retracted laterally to show the deep fascia. Careful dissection through this layer identified three main crossing vessels of the lateral femoral circumflex. These were cauterized in multiple locations and then cut without any noticeable bleeding. The TFL was further released bluntly from the deep fascia to expose anterior hip capsule and fat The Chaitanya orthopaedic retractor was then placed beneath the TFL and against sartorius and medial soft tissues to protect and retract the soft tissues. A T-capsulotomy was then performed starting at the superior lateral acetabulum and moving distally to the intertrochanteric ridge. These capsular flaps were tagged with a No. 1 Ethibond and elevated from within. The capsular flaps were released to the shoulder of the lateral neck and to the lesser trochanter to give excellent visualization of the proximal femur. A neck osteotomy was performed using an oscillating saw based on preoperative templates. This cut started in the shoulder and of the lateral neck and exited medially. The saw was at all times directed medially to avoid injury to the greater trochanter. Gross traction was applied to the leg and the osteotomy opened. The femoral head was removed with a corkscrew, making sure to protect the TFL on its exit. The femoral head had notable deformity to the superior weight bearing portion of the head. There were osteophytes circumfrentially around the femoral head. Traction was released after head removal. This was measured on the back table to determine the starting reamer size. Portions of the rectus obscuring visualization were minimally elevated off the superior acetabulum. An anterior retractor was placed over the anterior wall between capsule and labrum and attached to the Gripper retraction system. The femur was rotated to 90 degrees and medial capsule was fully released until the lesser trochanter was palpable and visible; the femur was returned to 30 degrees. A posterior retractor was placed similarly between capsule and labrum. This provided excellent visualization. The contents of the cotyloid fossa were removed with electrocautery and the labrum was removed with a knife. There was a notable floor osteophyte. There was significant chondromalacia of the superior acetabulum. Acetabular reaming began with a 54mm reamer. This first reaming was directed anterior to posterior and medial to get down to the true floor. This was inspected and reamed until the true floor was reached. The anterior retractor was then released and entry and exit was provided by traction on the capsular flaps. I then reamed sequentially up to a 58mm reamer where good fit was obtained. The larger reamers were oriented based on anatomical reference of the anterior and lateral nova to ensure proper abduction and anteversion. Positioning and size was confirmed with the fluoroscopy. A 58mm Depuy [place] acetabular component was selected. The acetabulum was reamed around the periphery with the selected acetabular size to prevent a rim fit. The deep tissues were irrigated. The acetabular component was then impacted in a position of about 40-45 degrees of abduction and 15-20 degrees of anteversion, using the patient?s anatomy as the ultimate landmark. Fluoroscopy was used to confirm this. There was excellent margarine churn operator of the acetabular component and the inserting handle was removed. The acetabular liner, Depuy 58f14cm polyethylene liner, was inserted and lined up with the tines of the acetabular component. There was no soft tissue interposition. The liner was then impacted into position and confirmed to be well-seated. A portion of the kerrie-articular cocktail was then injected around the acetabulum into the capsule and periosteum. This cocktail consisted of 50cc of 0.25% Bupivicaine and 20cc of Exparel and 30mg of Ketorolac. The leg was rotated to 120 degrees. Any remaining medial capsule was released until the lesser trochanter was easily palpable. A retractor was placed medially. The lateral capsule was further released into the shoulder to allow access to the greater trochanter. A Mckeon retractor was placed over the greater trochanter which allowed the trochanter to flip in front of the capsule for excellent exposure. The leg was brought down into maximal extension and 20 degrees of adduction while ensuring there was no impingement on the acetabulum. Any remnant capsule within the trochanter was released. Piriformis and obturator externis were identified and protected. There was excellent access to the proximal femur. The lateral neck remnant was removed with a rongeur. A blunt canal probe was used to identify the canal and trajectory for later broaching. A box osteotome initiated the broach course. A small curved rasp and a curved curette were used to establish the path of the broach. Broaching then began with a size 0 Actis broach. This was inserted manually around the trochanter and into the canal before mallet blows. The broach was seated to the neck cut level based on the neck cut and the preoperative template. Sequential broaching was continued with the [employer] pneumatic broaching device until a tight fit was obtained with good rotational control of the femur. A trial standard neck was inserted along with a +5 trial head. The leg was brought out of extension and adduction and then reduced with traction and internal rotation. The leg was stable anteriorly in a position of 30 degrees of extension and 90 degrees of external rotation. Fluoroscopy was used to ensure there was no fracture and the stem was seated well. Leg lengths were checked with an AP pelvis and pelvic reference points. [employer] navigation system was used to confirm appropriate positioning and leg length and offset. To achieve the goal of 4mm of lengthening and neutral offset, going to a +8.5mm head achieved this. Once content with the desired offset and leg lengths, the leg was brought back into extension, external rotation and adduction. The periosteum and surrounding tissue was injected with remaining portion of the kerrie-articular cocktail. The proximal femur was irrigated as well as the deep tissues. The [employer] Standard collared stem, size 10, was then manually inserted into the proximal femur making sure to control rotation. It was then malleted into position with light blows, giving breaks to allow bone expansion and decrease risk of fracture. The selected Depuy Altrx Ceramic Head, size 36+8.5mm, was then placed onto the clean and dry trunnion and secured with impaction onto the tapered fit. The leg was brought back out of extension and adduction and reduced with traction and internal rotation. Stability was confirmed with no shuck at 90 degrees of external rotation and 30 degrees of extension. No impingement through range of motion arc. Final x-ray images were obtained with fluoroscopy to confirm adequate positioning and no intraoperative fracture. The deep tissues were thoroughly irrigated with Irrisept chlorhexadine solution. The capsule was then reapproximated with the previously placed Ethibond sutures. The TFL fascia was finally closed with a No. 2 Stratafix, barbed suture. Deep tissues were then reapproximated with 0 Vicryl and a running 2-0 Vicryl. The skin was closed with a running 4-0 Monocryl in a subcuticular fashion. There was a small area of iritation to the medial skin edge of the superior incision due to traction from the broach handles. This was superficial. The skin then was reinforced with skin glue. A Mepilex silver dressing was applied. At the end of the case, all counts were correct. Russ was transferred to the hospital bed without difficulty and suffering no apparent complication. Russ has a good prognosis. Physical therapy will start today and without restrictions, weight-bearing as tolerated. Aspirin 81mg BID will be used for DVT prophylaxis.
--- NOTE | 2021-04-24 11:20 | PT.INIE ---
Date of service: 04/24/21 Time of Service: 11:20 PT Notes Visit Reasons: Right Hip DJD Physical Therapy Day Surgery Initial Evaluation Date: 04/25/2021 Referring Doctor: Imer Larsen MD PT Orders: PT CONSULT: S/P ortho surgery. S/P R KEARA. Precautions: WBAT on right LE with AD. Patient Profile/Admitting Diagnosis: Russ is a 61-year-old male with primary unilateral osteoarthritis of the right hip and is status post right anterior total hip arthroplasty on postoperative day 0. PMHX: Surgical History? History of esophagogastroduodenoscopy (EGD) (07/29/13) History of lumbar surgery ER 10/2019-s/p decompression l3-L5, neurosx at [facility] S/P ear surgery ear drum removal and replacement S/P right knee arthroscopy (~10/2000) meniscus repair S/P tonsillectomy Social History/Home Situation: Lives with in a private home with 4 steps to enter. Independent with all aspects of ADLs prior to surgery. Equipment Owned/DME: [facility], [facility]LL[facility] Subjective: Agreeable to PT consult. Objective: General Observation: Mepilex Ag over surgical incision. TEDS ambulates. Mental Status: Alert and oriented x4 Pain: 3-4/10 in the hip ROM: The Right Lower Extremity: Hip flexion WFL. Hip abduction WFL. Knee flexion WFL. Ankle dorsiflexion WFL. Ankle plantarflexion WFL. Left Lower Extremity: Hip flexion WFL. Hip abduction WFL. Knee flexion WFL. Ankle dorsiflexion WFL. Ankle plantarflexion WFL. Strength: Right Lower Extremity: Hip flexors 4/5. Hip abductors 4/5. Knee flexors 5/5. Knee extensors 4/5. Ankle dorsiflexors 5/5. Ankle plantarflexors 5/5. Left Lower Extremity:Hip flexors 5/5. Hip abductors 5/5. Knee flexors 5/5. Knee extensors 5/5. Ankle dorsiflexors 5/5. Ankle plantarflexors 5/5. Sensation: Intact as to pain and light pressure in B LE Bed Mobility/Transfers: Supine to sit standby assist Sit to stand contact-guard assist Stand to sit standby assist Bed to chair standby assist Gait: Instructed patient with level surface ambulation of 100 feet using front-wheeled walker with gait pattern only standby assist of PT and nurse. Reports some tightness initially but subsided with activity. Denies headache, dizziness, and chest pain throughout activity. Stairs: Up and down 6 x 4 inch steps and 4 x 6 inch steps while holding onto B rails with step to gait pattern requiring standby assist report of increased pain. Balance: Static Sitting: Normal Dynamic Sitting: Normal Static Standing: Fair Dynamic Standing: Fair Special Tests: Mobility Limitations Standardized Measure [facility] AM-PAC 6 clicks Basic Mobility Inpatient Short Form: Raw Score: 23 CMS Score: 11% deficit Informed Consent/Education: Patient instructed in purpose of PT consult. Education and training on initial set of exercises that can be done at home have been completed with patient with use of WUT otto reinforced with patient and . Assessment: Russ demonstrates functional mobility decline requiring the use of front wheeled walker for mobility is to reduce fall risk and maximize independence. Patient presents with clinical signs and symptoms consistent with current/admitting diagnoses that have resulted to mobility limitations, gait instability, generalized weakness, and impairment of motor control as demonstrated by the following impairment level findings: 1. Decreased strength to R hip major muscle groups 2. Impaired standing balance Impairments are contributing to the following functional limitations: 1. Inability to safely ambulate without assistive device 2. Increase completion time for mobility ADL performance 3. Increased fall risk Patient is assessed as a 22941 moderate complexity based on the following: History: 61-year-old male with impairment level findings, functional limitations, and past medical history as indicated above Examination: Demonstrable impairment in strength, balance, and mobility level with underlying impairments and functional limitations as documented above Presentation: Evolving Decision Makin moderate complexity Goals: N/A. PT evaluation and 1-2 treatment sessions only for functional mobility training using recommended AD and for HEP instruction. Plan of Care/Treatment Plan: N/A. PT evaluation and 1-2 treatment session only for functional mobility training using recommended AD and for HEP instruction. DISCHARGE RECOMMENDATIONS: [] Home with no services [] [] Home with services [specify] [X] Home with outpatient PT. Home when medically cleared by orthopedic surgeon. Will benefit patient facilitate return to community ambulation without an assistive device. [] SNF for continued rehabilitation [] [] [facility] [] [] SNF versus LTC based on ability to participate and progress [] TREATMENT CODE/TIME: 87282 x 20 minutes, 09268 x 15 minutes beginning at 11:20 AM. Thank you for the opportunity to participate in the care of this patient. Opal Wolff PT, DPT, CLT [facility] [place], [place]
--- NOTE | 2021-04-24 12:55 | W.ANESPOSTOP ---
Postoperative Evaluation Date, Time and Location Date Performed: 04/24/21 Time Performed: 12:55 Patient Location: Day Surgery Unit Vital Signs Most Recent Imported Vital Signs: Most Recent Vital Signs Temp Pulse Resp BP Pulse Ox 36.5 C 74 16 125/84 98 04/24/21 12:08 04/24/21 12:08 04/24/21 12:08 04/24/21 12:08 04/24/21 12:08 Pain Score Most Recent Pain Score: Most Recent Pain Score Pain Level 0 04/24/21 12:08 Assessment Mental Status: Awake (Alert & Oriented to Patient Baseline) Airway and Respiratory Function: Patent airway with normal (patient baseline) respiratory exam Cardiovascular Function: Hemodynamically Stable Hydration Status: Adequately Hydrated Nausea & Vomiting: No Nausea or Vomiting Pain: Pt. Denies Any Pain Peripheral Nerve Block: Patient did not receive a nerve block
== END 2021-04-24 13:05 | disposition home or self-care (01) ==
PROVIDERS: PCP Nurse Practitioner Family; Visit Provider Student in an Organized Health Care Education/Training Program
PROC: (CPT 27130; principal; 2021-04-24 07:30)
DX: M16.11 Unilateral primary osteoarthritis, right hip (principal); R73.03 Prediabetes; E78.5 Hyperlipidemia, unspecified; K21.9 Gastro-esophageal reflux disease without esophagitis
CPT/HCPCS: 27130; 20985; 97162; 97530; 73501; A4600; J0690; J1100; J1885; J2001; J2250; J2405

== ENCOUNTER 2021-05-09 12:04 | Outpatient (CLI) | payer OTHER, SELFPAY ==
--- NOTE | 2021-05-09 08:45 | DI.RAD_ITS ---
Exam(s) XR HIP RT COMPLETE AP PELVIS EXAM: XR HIP RT COMPLETE AP PELVIS CLINICAL HISTORY: 1ST POST OP R KEARA. TECHNIQUE: 2D digital imaging was performed of the right hip. Three images were obtained. AP pelvis and lateral right hip views were obtained. COMPARISON: CR XR HIP RT COMPLETE AP PELVIS from 02/14/2019 CR XR PELVIS AP from 04/18/2021 XA XR HIP RT IN OR from 04/24/2021 FINDINGS: BONES: No acute fracture is present. No bony destructive lesion is seen. JOINTS: There is a stable right total hip replacement. No evidence of hardware failure. SOFT TISSUE: Normal. IMPRESSION: Stable right THR. DATA REPOSITORY: RADIATION DOSE DELIVERED:
== END 2021-05-09 12:05 | disposition home or self-care (01) ==
LOC: DIORS 12:04
PROVIDERS: PCP Nurse Practitioner Family; Referring Provider Nurse Practitioner Family; Visit Provider Physician Assistant
DX: Z96.641 Presence of right artificial hip joint (principal); Z47.1 Aftercare following joint replacement surgery
CPT/HCPCS: 73502

== ENCOUNTER 2021-05-13 03:01 | Outpatient (CLI) | payer OTHER, SELFPAY ==
[2021-05-13 11:49] LABS: Source Nasal/Nares
[2021-05-13 16:06] LABS: COVID-19 PCR Negative (Negative)
== END 2021-05-13 03:02 | disposition home or self-care (01) ==
LOC: LBO 03:01
PROVIDERS: PCP Nurse Practitioner Family; Visit Provider Student in an Organized Health Care Education/Training Program
DX: Z20.822 Contact with and (suspected) exposure to COVID-19 (principal); Z01.818 Encounter for other preprocedural examination
CPT/HCPCS: 87635

== ENCOUNTER 2021-05-15 06:22 | Day surgery (SDC) | payer OTHER, SELFPAY ==
[2021-05-15 06:40] VITALS: BP 127/93; PULSE 87; RESP 16; TEMP 36.5; O2SAT 97
--- NOTE | 2021-05-15 06:56 | ANES.PREOP_ITS ---
General Info Date of Service Date Performed: 05/15/21 Height: 6 ft 1 in Weight: 130 kg Body Mass Index (BMI): 37.8 Surgical Procedure: Operation Date: 05/15/21 07:40 Proposed Procedure Side Surgeon p Wrist ECTR Right Imer Larsen MD Meds Allergies and Home Medications Allergies Allergy/AdvReac Type Severity Reaction Status Date / Time amlodipine AdvReac Intermediate Swelling Verified 05/15/21 06:30 of feet on 5 mg latex AdvReac Verified 05/15/21 06:30 Home Medication Medication Instructions Recorded multivitamin 1 ea PO DAILY 11/23/12 omeprazole 20 mg capsule,delayed 20 mg PO .Every other day #90 cap 03/02/20 release lisinopril 10 1 tab PO DAILY #90 tab-cap 04/10/21 mg-hydrochlorothiazide 12.5 mg tablet cyanocobalamin (vitamin B-12) 1,000 mcg PO DAILY 04/23/21 1,000 mcg tablet (Vitamin B-12) acetaminophen 500 mg tablet 1,000 mg PO Q8H PRN #90 tab 04/24/21 aspirin 81 mg tablet,delayed 81 mg PO BID #60 tab 04/24/21 release celecoxib 200 mg capsule 200 mg PO BID PRN #60 cap 04/24/21 docusate sodium 100 mg capsule 100 mg PO BID PRN #10 cap 04/24/21 (Colace) oxycodone 5 mg tablet 5 mg PO Q4H #12 tab 04/24/21 Current Visit Medications: Current Medications Generic Name Dose Route Start Last Admin Trade Name Freq PRN Reason Stop Dose Admin Ringer's Solution 1,000 mls @ 80 mls/hr 05/15/21 06:00 IV 06/13/21 23:59 INFUSION CHRISTIANO Cefazolin Sodium 3,000 mg/ 100 mls @ 200 mls/hr 05/15/21 06:00 Sodium Chloride IVPB 05/15/21 18:00 PREOP CHRISTIANO IV Miscellaneous Supplies 1 each 05/15/21 06:00 Iv Access IV 06/13/21 23:59 DIRECTED CHRISTIANO Sodium Chloride 0 ml 05/15/21 06:00 Normal Saline Flush 10 Ml Syr IV 06/13/21 23:59 PRN PRN Sodium Chloride 0 ml 05/15/21 06:00 Normal Saline 10 Ml Vial IJ 06/13/21 23:59 DIRECTED PRN Sterile Water 0 ml 05/15/21 06:00 Water,Injection,Sterile 10 Ml Vial IJ 06/13/21 23:59 DIRECTED PRN PFSH Active Problems Active Problems: Problem Status Onset Code History of total right hip replacement 04/24/21 Z96.641 Carpal tunnel syndrome of right wrist G56.01 Carpal tunnel syndrome of left wrist G56.02 Prediabetes R73.03 Hyperlipidemia E78.5 BPH without urinary obstruction N40.0 Right lumbar radiculopathy M54.16 Essential hypertension I10 GERD (gastroesophageal reflux disease) K21.9 Degenerative joint disease of right hip M16.11 Osteoarthritis of right knee M17.11 Surgical History Surgical History History of esophagogastroduodenoscopy (EGD) (07/29/13) History of lumbar surgery 10/2019-s/p decompression l3-L5, neurosx at [facility] S/P ear surgery ear drum removal and replacement S/P right knee arthroscopy (~10/2000) meniscus repair S/P tonsillectomy Tobacco Smoking/Tobacco Use Status: Never Alcohol Alcohol Intake: current Alcohol intake frequency: a few times a month Alcohol type: other Substance Use Substance use: Never Substance use type: does not use Vital Signs and Lab Results Vital Signs Most Recent Vital Signs in EMR: Most Recent Vital Signs Temp Pulse Resp BP Pulse Ox 36.5 C 87 16 127/93 H 97 05/15/21 06:40 05/15/21 06:40 05/15/21 06:40 05/15/21 06:40 05/15/21 06:40 Lab Results Blood Type / Crossmatch: Patient ABO/Rh O Positive 04/22/21 Antibody Screen NEGATIVE 04/22/21 Complete Blood Count: White Blood Count 5.42 10^3/uL (4.4-10.8) 04/22/21 08:36 04/22/21 Red Blood Count 4.38 10^6/uL (4.36-5.78) 04/22/21 08:36 04/22/21 Hemoglobin 10.7 g/dL (13.5-17.5) L 04/22/21 08:36 04/22/21 Hematocrit 35.1 % (40.0-50.0) L 04/22/21 08:36 04/22/21 Platelet Count 343 10^3/uL (130-400) 04/22/21 08:36 04/22/21 Complete Metabolic Panel: Sodium Level 141 mmol/L (136-145) 04/22/21 08:36 04/22/21 Potassium Level 4.3 mmol/L (3.5-5.1) 04/22/21 08:36 04/22/21 Chloride Level 105 mmol/L (98-107) 04/22/21 08:36 04/22/21 Carbon Dioxide Level 27.2 mmol/L (21.0-32.0) 04/22/21 08:36 04/22/21 Blood Urea Nitrogen 20 mg/dL (7-18) H 04/22/21 08:36 04/22/21 Creatinine 0.7 mg/dL (0.70-1.30) 04/22/21 08:36 04/22/21 Estimated GFR/1.73 m2 >= 60.00 (mL/min/1.73m2) 04/22/21 08:36 04/22/21 Calcium Level 8.6 mg/dL (8.5-10.1) 04/22/21 08:36 04/22/21 Glucose Level 102 mg/dL (74-106) 04/22/21 08:36 04/22/21 Liver Function Panel: No Data to Display Coagulation Panel: No Data to Display Cardiac Panel: No Data to Display Arterial Blood Gas: No Data to Display Venous Blood Gas: No Data to Display Pancreas Panel: No Data to Display Thyroid Panel: No Data to Display Infectious Disease: Coronavirus (COVID-19)(PCR) Negative (Negative) 05/13/21 08:56 05/13/21 Coronavirus 2019 Source Nasal/Nares 05/13/21 08:56 05/13/21 Blood Cultures: No Data to Display Toxicology Panel: No Data to Display Imaging and Studies Imaging and Studies Study information below may be from another EMR and interpreted by another provider. Please see original notes in EMR for more complete details. EKG Summary: 2020: sinus rhythm. Stress Test Summary: 2020: no symptoms of ischemia, non-diagnostic EKG. MPI EF 42%, no WMA, no evidence of ischemia. Anesthesia Assessment and Plan Anesthesia History Personal History: No History of Anesthesia Complications Family History: No Family History of Anesthesia Complications Exercise Tolerance Exercise Tolerance: Metabolic Equivalents>4 Pertinent Negatives Pertinent Negatives: No Symptoms of GERD, No Major Cardiovascular Symptoms or Complaints, No Major Pulmonary Symptoms or Complaints and No History of CVA/TIA Cardiac & Pulmonary Exam Cardiac Exam: Normal S1/S2 Heart Sounds Pulmonary Exam: Clear Bilateral Breath Sounds Implantable Cardiac Device Does patient have a Pacemaker or an ICD?: No Airway Exam Known Difficult Airway: No Mallampati Class: 2 Mouth Opening: Normal (> 3cm) Thyromental Distance: Greater than 3 cm Neck Range of Motion: Limited ROM Neck Circumference: Normal Teeth Condition: Normal Dentition ASA Classification ASA Score: ASA 2 Emergency Case?: No NPO Status NPO Status: NPO Clears >2 hours, Solids >8 hours Anesthesia Plan Resuscitation Status: Full Code Anesthesia Technique: General Anesthesia Airway Planned: Natural Airway Monitors Used: Standard Monitors
[2021-05-15 06:58] VITALS: BMI 37.8
[2021-05-15] MEDS: Lactated Ringers 1,000 ML 80 ML IV (07:05)
--- NOTE | 2021-05-15 07:16 | W.PREOPHP ---
Assessment and Plan Assessment and plan (1) Carpal tunnel syndrome of right wrist: Status: Acute Assessment and plan: Long is a 61-year-old who has carpal tunnel syndrome of both hands. He is here today for right endoscopic carpal tunnel release. I discussed the technical details of carpal tunnel release and that I perform an endoscopic release, but would make a larger, open, incision if necessary for visualization. I discussed the risks of the procedure to include, but not limited to, bleeding, infection, palmar pain, stiffness, damage to nerves, damage to vessels, damage to tendons, weakness, recurrence, and incomplete release. Given these risks, Long desires to proceed. (2) Carpal tunnel syndrome of left wrist: Status: Acute Assessment and plan: Plan to proceed with the left endoscopic carpal tunnel release in 1 to 2 weeks. History of Present Illness Narrative: Long is a 61-year-old who has known carpal tunnel syndrome of bilateral hands. Please see the previous office notes for history of this. This has been confirmed nerve conduction studies as well. He is status post right hip replacement and is doing very well from this. He still has numbness and tingling about both hands which has failed other nonoperative treatments and he is here today for endoscopic carpal tunnel release of the right side to be followed by the left side in a few weeks. Review of Systems All systems reviewed & are unremarkable except as noted in HPI and below PFSH All Active Problems History of total right hip replacement (Acute 04/24/21) Carpal tunnel syndrome of right wrist (Acute) Carpal tunnel syndrome of left wrist (Acute) Prediabetes (Chronic) 5.9 in 09/2019 Hyperlipidemia (Chronic) BPH without urinary obstruction (Chronic) Right lumbar radiculopathy (Chronic) Essential hypertension (Chronic) GERD (gastroesophageal reflux disease) (Chronic) Degenerative joint disease of right hip (Acute) Osteoarthritis of right knee (Chronic) Surgical History History of esophagogastroduodenoscopy (EGD) (07/29/13) History of lumbar surgery 10/2019-s/p decompression l3-L5, neurosx at [facility] S/P ear surgery ear drum removal and replacement S/P right knee arthroscopy (~10/2000) meniscus repair S/P tonsillectomy Family History Mother , at 83 from right hip replacement infection Breast cancer Hypertension Father , in his late 90s Heart disease Asthma Hypertension Sister No problems noted. Sister Breast cancer Brother Essential hypertension Brother No problems noted. Maternal Grandfather Heart disease Maternal Grandmother Bladder cancer Heart disease Paternal Grandfather No problems noted. Paternal Grandmother Heart disease Daughter No problems noted. Daughter No problems noted. Daughter No problems noted. Son No problems noted. Son No problems noted. Son No problems noted. Social History Smoking/Tobacco Use Status: Never Smoking risk assessment performed?: Yes Alcohol Intake: current Alcohol Intake frequency: a few times a month Alcohol type: other Drug use: Never Substance use type: does not use Household members: children Housing: house Number of Children: 6 number of grandchildren: 5 current occupation: [employer] Current gender identity: male What type of physical activity do you participate in: independent ambulation Do you feel safe at home: Yes (spouse in room) Do you feel safe in your relationship?: Yes Meds Allergies and Home Medications Allergies Allergy/AdvReac Type Severity Reaction Status Date / Time amlodipine AdvReac Intermediate Swelling Verified 05/15/21 06:30 of feet on 5 mg latex AdvReac Verified 05/15/21 06:30 Home Medications Medication Instructions Recorded Confirmed Type multivitamin 1 ea PO DAILY 11/23/12 05/15/21 History omeprazole 20 mg capsule,delayed 20 mg PO .Every other day #90 cap 03/02/20 05/15/21 Rx release lisinopril 10 1 tab PO DAILY #90 tab-cap 04/10/21 05/15/21 Rx mg-hydrochlorothiazide 12.5 mg tablet cyanocobalamin (vitamin B-12) 1,000 mcg PO DAILY 04/23/21 05/15/21 History 1,000 mcg tablet (Vitamin B-12) acetaminophen 500 mg tablet 1,000 mg PO Q8H PRN #90 tab 04/24/21 05/15/21 Rx aspirin 81 mg tablet,delayed 81 mg PO BID #60 tab 04/24/21 05/15/21 Rx release celecoxib 200 mg capsule 200 mg PO BID PRN #60 cap 04/24/21 05/15/21 Rx docusate sodium 100 mg capsule 100 mg PO BID PRN #10 cap 04/24/21 05/14/21 Rx (Colace) oxycodone 5 mg tablet 5 mg PO Q4H #12 tab 04/24/21 05/14/21 Rx Exam Resp Auscultation: clear to auscultation bilaterally Cardio Rate: regular rate Rhythm: regular rhythm Results Last Vital Signs Temp 36.5 C 05/15/21 06:40 Pulse 87 05/15/21 06:40 Resp 16 05/15/21 06:40 BP 127/93 H 05/15/21 06:40 Pulse Ox 97 05/15/21 06:40
--- NOTE | 2021-05-15 07:26 | PDOC.DSDIS_ITS ---
Discharge Plan Disposition Patient Disposition: HOME Condition: Good Discharge Details Reason For Visit: R ECTR Attending Provider: Imer Larsen Primary Care Provider: Ragini Tinoco Home Meds and New Rx's Prescriptions: New acetaminophen 500 mg tablet 1,000 mg PO TID Qty: 90 0RF ibuprofen 600 mg tablet 600 mg PO TID PRN (Reason: pain) Qty: 90 0RF Continued multivitamin 1 EACH tablet 1 ea PO DAILY 0RF omeprazole 20 mg capsule,delayed release(DR/EC) 20 mg PO .Every other day Qty: 90 4RF lisinopril-hydrochlorothiazide 10-12.5 mg tablet 1 tab PO DAILY Qty: 90 4RF cyanocobalamin (vitamin B-12) [Vitamin B-12] 1,000 mcg Tablet 1,000 mcg PO DAILY 0RF aspirin 81 mg tablet,delayed release (DR/EC) 81 mg PO BID Qty: 60 0RF docusate sodium [Colace] 100 mg capsule 100 mg PO BID PRNQty: 10 0RF oxycodone 5 mg tablet 5 mg PO Q4H Qty: 12 0RF Discontinued acetaminophen 500 mg tablet 1,000 mg PO Q8H PRN (Reason: pain) Qty: 90 3RF celecoxib 200 mg capsule 200 mg PO BID PRN (Reason: pain) Qty: 60 1RF Discharge Instructions Stand Alone Forms: Chava Viveros Tunnel Release Referrals: Imer Larsen MD [ [facility] STAFF PHYSICIAN] - Activity:: Activity as Tolerated Remove Dressings/Wound Care:: 48 hours Shower/Bathe:: 48 hours Diet:: As Tolerated Discharge Orders Discharge Orders: Discharge Order (Routine); Ordered 05/15/21 Ordered By: Olu Molina DS: Diagnosis Discharge Diagnosis (1) Carpal tunnel syndrome of right wrist: Status: Acute (2) Carpal tunnel syndrome of left wrist: Status: Acute
[2021-05-15] MEDS: ceFAZolin 3,000 MG in Normal Saline 100 ML 200 MG IVPB (07:29)
[2021-05-15] MEDS: Sodium Bicarbonate 50 MEQ/50 ML VIAL (07:45)
[2021-05-15 07:54] VITALS: BP 111/76; PULSE 79; RESP 16; TEMP 36.8; O2SAT 96
--- NOTE | 2021-05-15 07:54 | W.ANESPOSTOP ---
Postoperative Evaluation Date, Time and Location Date Performed: 05/15/21 Time Performed: 07:55 Patient Location: Day Surgery Unit Vital Signs Most Recent Imported Vital Signs: Most Recent Vital Signs Temp Pulse Resp BP Pulse Ox 36.5 C 87 16 127/93 H 97 05/15/21 06:40 05/15/21 06:40 05/15/21 06:40 05/15/21 06:40 05/15/21 06:40 Most Recent Manually Entered Vital Signs: Adult Blood Pressure: 111/76 Heart Rate: 82 Respirations: 12 Oxygen Saturation (%): 97 Temperature (C): 36.3 C Pain Score (0-10 Scale): 0 Pain Score Most Recent Pain Score: Most Recent Pain Score Pain Level 0 05/15/21 06:40 Assessment Mental Status: Awake (Alert & Oriented to Patient Baseline) Airway and Respiratory Function: Patent airway with normal (patient baseline) respiratory exam Cardiovascular Function: Hemodynamically Stable Hydration Status: Adequately Hydrated Nausea & Vomiting: No Nausea or Vomiting Pain: Pt. Denies Any Pain Peripheral Nerve Block: Patient did not receive a nerve block
[2021-05-15 07:55] VITALS: BP 111/76; PULSE 82; RESP 12; TEMPC 36.3; O2SAT 97
[2021-05-15 08:24] VITALS: BP 122/78; PULSE 73; RESP 16; TEMP 36.8; O2SAT 98
--- NOTE | 2021-05-15 14:03 | W.PM.OP ---
Date of service: 05/15/21 Time of Service: 07:40 Operative Note Operative Note DATE OF PROCEDURE: 05/15/21 PRE-OP DIAGNOSIS: Right Carpal Tunnel Syndrome POST-OP DIAGNOSIS: same PROCEDURE: Right Endoscopic Carpal Tunnel Release SURGEON: Imer Larsen ANESTHESIA TYPE: General:No Airway Refer to Anesthesia Record ESTIMATED BLOOD LOSS: 0 PATHOLOGY: none sent TOURNIQUET TIME: 5 COMPLICATIONS: None Patient was transported to: same day Patient's condition: stable Indications: I have seen Long in clinic for symptoms of carpal tunnel syndrome. The numbness, tingling, and pain limited function. Clinical exam findings with nerve conduction tests confirmed the diagnosis of carpal tunnel syndrome. Nonoperative measures such as bracing, time, activity modifications had been tried but disability and pain persisted. I discussed carpal tunnel release with the patient. I reviewed the risks of the procedure to include, but not limited to, bleeding, infection, pain, stiffness, incomplete release, damage to nerves or vessels, persistent numbness, recurrence. Despite these risks, the patient elected to proceed. Findings: There was tightened carpal tunnel. This was dilated and released successfully with the endoscopic with increased space within the tunnel. The antebrachial fascia was released proximally freeing the median nerve at the wrist. Procedure Description: Long was greeted in the preoperative holding area where the correct side was identified and marked. The consent was reviewed with the patient and signed. The history and physical was updated. All questions were answered. He was taken back to the operating room. The patient was placed into the supine position on the operating room table with the right arm on an arm board. A nonsterile tourniquet was placed high onto the arm. All bony prominences were well padded. Prophylactic antibiotics in the form of Cefazolin were administered. The right arm was then prepped with Chloraprep and draped in a standard fashion with stockinette and extremity drape. A timeout to confirm correct identity, side and site, procedure, allergies, anesthesia, and medical concerns was performed. The surgical site was marked in the volar wrist creases in line with the radial border of the fourth ray. This area was anesthetized with approximately 6cc of 1% Lidocaine. The limb was then exsanguinated with an Esmarch. The skin was incised with a 15 blade, approximately 1cm. The skin only was cut and the deeper tissue was dissected bluntly with a tenotomy scissor, avoiding passing nerve and venous structures. The fascia was penetrated and opened bluntly. A two-prong skin hook was placed under this proximal fascial edge. A series of hamate finders were used to identify and dilate the carpal tunnel. Synovial elevator was used to free synovial attachments to the underside of the transverse carpal ligament. My thumb was kept in the palm to eliu the distal extent of the carpal tunnel and correctly position the hand. The Microaire endoscope was inserted without difficulty and without resistance. Excellent visualization showed horizontally running fibers of the transverse carpal ligament (TCL). The distal extent of the TCL was visualized and the end of the scope palpated with the thumb. The blade was elevated and withdrawn from distal to proximal. The TCL was split into two flaps. The endoscope was reinserted to confirm complete release and any remnant ligament was incised. The scope was withdrawn and the proximal aspect of the carpal tunnel was grossly inspected and appeared release with the median nerve visible. The antebrachial fascia at the level of the wrist was then freed from the overlying skin and then the underlying median nerve with blunt dissection. This was transected longitudinally for about 3cm proximal to the wrist incision. The wound was then irrigated with easy flow of irrigant distally and proximally. The incision was closed with a single 4-0 Nylon suture. The wound was dressed with Xeroform, Gauze, Kerlix and Dhiraj. The tourniquet was deflated with the initial dressing and held with some pressure. Blood flow returned easily to all digits with capillary refill less than 2 seconds. The patient tolerated the procedure well and was returned to the Same Day Surgery area in a stable condition suffering no known complication.
== END 2021-05-15 08:55 | disposition home or self-care (01) ==
PROVIDERS: PCP Nurse Practitioner Family; Visit Provider Student in an Organized Health Care Education/Training Program
PROC: 01N54ZZ Release Median Nerve, Percutaneous Endoscopic Approach (ICD-10-PCS; CPT 29848; principal; 2021-05-15 07:30)
DX: G56.01 Carpal tunnel syndrome, right upper limb (principal); R73.03 Prediabetes; K21.9 Gastro-esophageal reflux disease without esophagitis; I10 Essential (primary) hypertension
CPT/HCPCS: 29848; J0690; J2250

== ENCOUNTER 2021-10-15 06:16 | Day surgery (SDC) | payer OTHER, SELFPAY ==
[2021-10-15 06:15] VITALS: BP 128/81; PULSE 71; RESP 18; TEMP 36.1; O2SAT 98
[2021-10-15] MEDS: Lactated Ringers 1,000 ML 80 ML IV (06:49)
--- NOTE | 2021-10-15 07:03 | ANES.PREOP_ITS ---
General Info Date of Service Date Performed: 10/15/21 Height: 6 ft 1 in Weight: 125 kg Body Mass Index (BMI): 36.3 Surgical Procedure: Operation Date: 10/15/21 07:40 Proposed Procedure Side Surgeon p Wrist ECTR Left Imer Larsen MD Meds Allergies and Home Medications Allergies Allergy/AdvReac Type Severity Reaction Status Date / Time amlodipine AdvReac Intermediate Swelling Verified 10/15/21 06:33 of feet on 5 mg latex AdvReac Verified 10/15/21 06:33 Home Medication Medication Instructions Recorded multivitamin 1 ea PO DAILY 11/23/12 omeprazole 20 mg capsule,delayed 20 mg PO .Every other day #90 caps 03/02/20 release lisinopril 10 1 tab PO DAILY #90 tab-caps 04/10/21 mg-hydrochlorothiazide 12.5 mg tablet cyanocobalamin (vitamin B-12) 1,000 mcg PO DAILY 04/23/21 1,000 mcg tablet (Vitamin B-12) ibuprofen 600 mg tablet 600 mg PO TID PRN pain #90 tabs 05/15/21 glutamine 500 mg tablet 500 mg PO BID 06/06/21 (L-Glutamine) acetaminophen 500 mg tablet 1,000 mg PO TID PRN 10/15/21 Current Visit Medications: Current Medications Generic Name Dose Route Start Last Admin Trade Name Freq PRN Reason Stop Dose Admin Ringer's Solution 1,000 mls @ 80 mls/hr 10/15/21 06:00 10/15/21 06:49 IV 11/13/21 23:59 80 mls/hr INFUSION CHRISTIANO Administration Cefazolin Sodium 3,000 mg/ 100 mls @ 200 mls/hr 10/15/21 06:00 Sodium Chloride IVPB 10/15/21 16:00 PREOP CHRISTIANO IV Miscellaneous Supplies 1 each 10/15/21 06:00 Iv Access IV 11/13/21 23:59 DIRECTED CHRISTIANO Sodium Chloride 0 ml 10/15/21 06:00 Normal Saline Flush 10 Ml Syr IV 11/13/21 23:59 PRN PRN Sodium Chloride 0 ml 10/15/21 06:00 Normal Saline 10 Ml Vial IJ 11/13/21 23:59 DIRECTED PRN Sterile Water 0 ml 10/15/21 06:00 Water,Injection,Sterile 10 Ml Vial IJ 11/13/21 23:59 DIRECTED PRN [facility] Active Problems Active Problems: Problem Status Onset Code Essential hypertension I10 BPH without urinary obstruction N40.0 Osteoarthritis of right knee M17.11 Right lumbar radiculopathy M54.16 Degenerative joint disease of right hip M16.11 GERD (gastroesophageal reflux disease) K21.9 Hyperlipidemia E78.5 Prediabetes R73.03 Carpal tunnel syndrome of left wrist G56.02 Carpal tunnel syndrome of right wrist G56.01 History of total right hip replacement 04/24/21 Z96.641 COVID-19 U07.1 Surgical History Surgical History (Updated 10/15/21 @ 06:32 by Maryjo Garsia) History of carpal tunnel release History of esophagogastroduodenoscopy (EGD) (07/29/13) History of hip replacement History of lumbar surgery 10/2019-s/p decompression l3-L5, neurosx at [facility] S/P ear surgery ear drum removal and replacement S/P right knee arthroscopy (~10/2000) meniscus repair S/P tonsillectomy Tobacco Smoking/Tobacco Use Status: Never Alcohol Alcohol Intake: current Alcohol intake frequency: a few times a month Alcohol type: other Substance Use Substance use: Never Substance use type: does not use Vital Signs and Lab Results Vital Signs Most Recent Vital Signs in EMR: Most Recent Vital Signs Temp Pulse Resp BP Pulse Ox 36.1 C L 71 18 128/81 98 10/15/21 06:15 10/15/21 06:15 10/15/21 06:15 10/15/21 06:15 10/15/21 06:15 Lab Results Blood Type / Crossmatch: No Data to Display Complete Blood Count: No Data to Display Complete Metabolic Panel: No Data to Display Liver Function Panel: No Data to Display Coagulation Panel: No Data to Display Cardiac Panel: No Data to Display Arterial Blood Gas: No Data to Display Venous Blood Gas: No Data to Display Pancreas Panel: No Data to Display Thyroid Panel: No Data to Display Infectious Disease: No Data to Display Blood Cultures: No Data to Display Toxicology Panel: No Data to Display Imaging and Studies Imaging and Studies Study information below may be from another EMR and interpreted by another provider. Please see original notes in EMR for more complete details. EKG Summary: 2020: sinus rhythm. Stress Test Summary: 2020: no symptoms of ischemia, non-diagnostic EKG. MPI EF 42%, no WMA, no evidence of ischemia. Anesthesia Assessment and Plan Anesthesia History Personal History: No History of Anesthesia Complications Family History: No Family History of Anesthesia Complications Exercise Tolerance Exercise Tolerance: Metabolic Equivalents>4 Pertinent Negatives Pertinent Negatives: No Symptoms of GERD, No Major Cardiovascular Symptoms or Complaints, No Major Pulmonary Symptoms or Complaints and No History of CVA/TIA Cardiac & Pulmonary Exam Cardiac Exam: Normal S1/S2 Heart Sounds Pulmonary Exam: Clear Bilateral Breath Sounds Implantable Cardiac Device Does patient have a Pacemaker or an ICD?: No Airway Exam Known Difficult Airway: No Mallampati Class: 2 Mouth Opening: Normal (> 3cm) Thyromental Distance: Greater than 3 cm Neck Range of Motion: Limited ROM Neck Circumference: Normal Teeth Condition: Normal Dentition ASA Classification ASA Score: ASA 2 Emergency Case?: No NPO Status NPO Status: NPO Clears >2 hours, Solids >8 hours Anesthesia Plan Resuscitation Status: Full Code Anesthesia Technique: General Anesthesia Airway Planned: Natural Airway Monitors Used: Standard Monitors
[2021-10-15 07:04] VITALS: BMI 36.3
--- NOTE | 2021-10-15 07:06 | HPE_ITS ---
Assessment and Plan Assessment and plan (1) Carpal tunnel syndrome of left wrist: Status: Acute Assessment and plan: Long is a 61-year-old who has known carpal tunnel syndrome about the left side. He has exhausted nonoperative options. He is here today for carpal tunnel release. Once again, I reviewed carpal tunnel surgery with him. I discussed potential risk to include, infection, pain, stiffness, damage to nerves or vessels, continued symptoms, persistent numbness. Despite these risks, he elects to proceed. History of Present Illness History of Present Illness Chief Complaint: Left Carpal Tunnel Syndrome Narrative: Long is a 61-year-old who has been previously diagnosed with bilateral carpal tunnel syndrome. He underwent a right carpal tunnel release about 6 months ago with good results. Initially, the plan was to proceed with the left side soon after but he delayed proceed with the left side until today. He reports no significantly new symptoms about the left wrist. He has had no changes to his health. No chest pain or shortness of breath. Review of Systems All systems reviewed & are unremarkable except as noted in HPI and below PFSH All Active Problems Essential hypertension (Chronic) BPH without urinary obstruction (Chronic) Osteoarthritis of right knee (Chronic) Right lumbar radiculopathy (Chronic) Degenerative joint disease of right hip (Acute) GERD (gastroesophageal reflux disease) (Chronic) Hyperlipidemia (Chronic) Prediabetes (Chronic) 5.9 in 09/2019 Carpal tunnel syndrome of left wrist (Acute) Carpal tunnel syndrome of right wrist (Acute) S/P ECTR: 05/15/2021 History of total right hip replacement (Acute 04/24/21) COVID-19 (Acute) 06/20/21 Surgical History History of carpal tunnel release History of esophagogastroduodenoscopy (EGD) (07/29/13) History of hip replacement History of lumbar surgery 10/2019-s/p decompression l3-L5, neurosx at [facility] S/P ear surgery ear drum removal and replacement S/P right knee arthroscopy (~10/2000) meniscus repair S/P tonsillectomy Family History Mother , at 83 from right hip replacement infection Breast cancer Hypertension Father , in his late 90s Heart disease Asthma Hypertension Sister No problems noted. Sister Breast cancer Brother Essential hypertension Brother No problems noted. Maternal Grandfather Heart disease Maternal Grandmother Bladder cancer Heart disease Paternal Grandfather No problems noted. Paternal Grandmother Heart disease Daughter No problems noted. Daughter No problems noted. Daughter No problems noted. Son No problems noted. Son No problems noted. Son No problems noted. Social History Smoking/Tobacco Use Status: Never Smoking risk assessment performed?: Yes Alcohol Intake: current Alcohol Intake frequency: a few times a month Alcohol type: other Drug use: Never Substance use type: does not use Household members: children Housing: house Number of Children: 6 number of grandchildren: 5 current occupation: [employer] Current gender identity: male What type of physical activity do you participate in: independent ambulation Do you feel safe at home: Yes Do you feel safe in your relationship?: Yes Meds Allergies and Home Medications Allergies Allergy/AdvReac Type Severity Reaction Status Date / Time amlodipine AdvReac Intermediate Swelling Verified 10/15/21 06:33 of feet on 5 mg latex AdvReac Verified 10/15/21 06:33 Home Medications Medication Instructions Recorded Confirmed Type multivitamin 1 ea PO DAILY 11/23/12 10/15/21 History omeprazole 20 mg capsule,delayed 20 mg PO .Every other day #90 caps 03/02/20 10/15/21 Rx release lisinopril 10 1 tab PO DAILY #90 tab-caps 04/10/21 10/15/21 Rx mg-hydrochlorothiazide 12.5 mg tablet cyanocobalamin (vitamin B-12) 1,000 mcg PO DAILY 04/23/21 10/15/21 History 1,000 mcg tablet (Vitamin B-12) ibuprofen 600 mg tablet 600 mg PO TID PRN pain #90 tabs 05/15/21 10/14/21 Rx glutamine 500 mg tablet 500 mg PO BID 06/06/21 10/15/21 History (L-Glutamine) acetaminophen 500 mg tablet 1,000 mg PO TID PRN 10/15/21 10/14/21 History Exam Resp Auscultation: clear to auscultation bilaterally Cardio Rate: regular rate Rhythm: regular rhythm Results Last Vital Signs Temp 36.1 C L 10/15/21 06:15 Pulse 71 10/15/21 06:15 Resp 18 10/15/21 06:15 BP 128/81 10/15/21 06:15 Pulse Ox 98 10/15/21 06:15
--- NOTE | 2021-10-15 07:10 | W.PM.DSUDISC ---
Discharge Plan Disposition Patient Disposition: HOME Condition: Good Discharge Details Reason For Visit: Left Carpal Tunnel Syndrome Attending Provider: Imer Larsen Primary Care Provider: Ragini Tinoco Home Meds and New Rx's Prescriptions: Continued L-Glutamine 500 mg tablet 500 mg PO BID multivitamin 1 EACH tablet 1 ea PO DAILY omeprazole 20 mg capsule,delayed release(DR/EC) 20 mg PO .Every other day Qty: 90 4RF lisinopril-hydrochlorothiazide 10-12.5 mg tablet 1 tab PO DAILY Qty: 90 4RF ibuprofen 600 mg tablet 600 mg PO TID PRN (Reason: pain) Qty: 90 0RF cyanocobalamin (vitamin B-12) [Vitamin B-12] 1,000 mcg Tablet 1,000 mcg PO DAILY acetaminophen 500 mg tablet 1,000 mg PO TID PRN Discharge Instructions Additional Instructions: Take Tylenol (up to 1000mg every 8 hours) and Ibuprofen (600-800mg every 8 hours) as needed for pain Referrals: Imer Larsen MD [ [facility] STAFF PHYSICIAN] - Activity:: Elevate Remove Dressings/Wound Care:: 48 hours Diet:: As Tolerated Discharge Orders Discharge Orders: Discharge Order (Routine); Ordered 10/15/21 Ordered By: Imer Larsen DS: Diagnosis Discharge Diagnosis (1) Carpal tunnel syndrome of left wrist: Status: Acute
[2021-10-15] MEDS: ceFAZolin 3,000 MG in Normal Saline 100 ML 200 MG IVPB (07:25)
[2021-10-15] MEDS: Lidocaine 1% Multi-Dose W/EPI 1/100,000 50 ML VIAL (07:35)
[2021-10-15 07:48] VITALS: BP 119/70; PULSE 77; RESP 14; TEMP 36.5; O2SAT 97
--- NOTE | 2021-10-15 07:51 | W.ANESPOSTOP ---
Postoperative Evaluation Date, Time and Location Date Performed: 10/15/21 Time Performed: 07:51 Patient Location: Day Surgery Unit Vital Signs Most Recent Imported Vital Signs: Most Recent Vital Signs Temp Pulse Resp BP Pulse Ox 36.1 C L 71 18 128/81 98 10/15/21 06:15 10/15/21 06:15 10/15/21 06:15 10/15/21 06:15 10/15/21 06:15 Most Recent Manually Entered Vital Signs: Adult Blood Pressure: 119/70 Heart Rate: 77 Respirations: 12 Oxygen Saturation (%): 97 Temperature (C): 36.3 C Pain Score (0-10 Scale): 0 Assessment Mental Status: Awake (Alert & Oriented to Patient Baseline) Airway and Respiratory Function: Patent airway with normal (patient baseline) respiratory exam Cardiovascular Function: Hemodynamically Stable Hydration Status: Adequately Hydrated Nausea & Vomiting: No Nausea or Vomiting Pain: Pt. Denies Any Pain Peripheral Nerve Block: Patient did not receive a nerve block
[2021-10-15 07:52] VITALS: BP 119/70; PULSE 77; RESP 12; TEMPC 36.3; O2SAT 97
[2021-10-15 08:20] VITALS: BP 122/86; PULSE 69; RESP 16; TEMP 36.2; O2SAT 98
--- NOTE | 2021-10-15 15:00 | W.PM.OP ---
Date of service: 10/15/21 Time of Service: 07:45 Operative Note Operative Note DATE OF PROCEDURE: 10/15/21 PRE-OP DIAGNOSIS: Left Carpal Tunnel Syndrome POST-OP DIAGNOSIS: same PROCEDURE: Left Endoscopic Carpal Tunnel Release SURGEON: Imer Larsen ANESTHESIA TYPE: General:No Airway Refer to Anesthesia Record ESTIMATED BLOOD LOSS: 0 PATHOLOGY: none sent TOURNIQUET TIME: 7 COMPLICATIONS: None Patient was transported to: same day Patient's condition: stable Indications: I have seen Long in clinic for symptoms of carpal tunnel syndrome. The numbness, tingling, and pain limited function. Clinical exam findings with nerve conduction tests confirmed the diagnosis of carpal tunnel syndrome. Nonoperative measures such as bracing, time, activity modifications had been tried but disability and pain persisted. He had a successful carpal tunnel release on the right side. I discussed carpal tunnel release with the patient. I reviewed the risks of the procedure to include, but not limited to, bleeding, infection, pain, stiffness, incomplete release, damage to nerves or vessels, persistent numbness, recurrence. Despite these risks, the patient elected to proceed. Findings: There was tightened carpal tunnel. This was dilated and released successfully with the endoscopic with increased space within the tunnel. The antebrachial fascia was released proximally freeing the median nerve at the wrist. Procedure Description: Long was greeted in the preoperative holding area where the correct side was identified and marked. The consent was reviewed with the patient and signed. The history and physical was updated. All questions were answered. He was taken back to the operating room. The patient was placed into the supine position on the operating room table with the left arm on an arm board. A nonsterile tourniquet was placed high onto the arm. All bony prominences were well padded. Prophylactic antibiotics in the form of Cefazolin were administered. The left arm was then prepped with Chloraprep and draped in a standard fashion with stockinette and extremity drape. A timeout to confirm correct identity, side and site, procedure, allergies, anesthesia, and medical concerns was performed. The surgical site was marked in the volar wrist creases in line with the radial border of the fourth ray. This area was anesthetized with approximately 6cc of 1% Lidocaine. The limb was then exsanguinated with an Esmarch. The skin was incised with a 15 blade, approximately 1cm. The skin only was cut and the deeper tissue was dissected bluntly with a tenotomy scissor, avoiding passing nerve and venous structures. The fascia was penetrated and opened bluntly. A two-prong skin hook was placed under this proximal fascial edge. A series of hamate finders were used to identify and dilate the carpal tunnel. Synovial elevator was used to free synovial attachments to the underside of the transverse carpal ligament. My thumb was kept in the palm to eliu the distal extent of the carpal tunnel and correctly position the hand. The Microaire endoscope was inserted without difficulty and without resistance. Excellent visualization showed horizontally running fibers of the transverse carpal ligament (TCL). The distal extent of the TCL was visualized and the end of the scope palpated with the thumb. The blade was elevated and withdrawn from distal to proximal. The TCL was split into two flaps. The endoscope was reinserted to confirm complete release and any remnant ligament was incised. The scope was withdrawn and the proximal aspect of the carpal tunnel was grossly inspected and appeared release with the median nerve visible. The antebrachial fascia at the level of the wrist was then freed from the overlying skin and then the underlying median nerve with blunt dissection. This was transected longitudinally for about 3cm proximal to the wrist incision. The wound was then irrigated with easy flow of irrigant distally and proximally. The incision was closed with a single 4-0 Nylon suture. The wound was dressed with Xeroform, Gauze, Kerlix and Dhiraj. The tourniquet was deflated with the initial dressing and held with some pressure. Blood flow returned easily to all digits with capillary refill less than 2 seconds. The patient tolerated the procedure well and was returned to the Same Day Surgery area in a stable condition suffering no known complication.
== END 2021-10-15 08:35 | disposition home or self-care (01) ==
PROVIDERS: PCP Nurse Practitioner Family; Visit Provider Student in an Organized Health Care Education/Training Program
PROC: 01N54ZZ Release Median Nerve, Percutaneous Endoscopic Approach (ICD-10-PCS; CPT 29848; principal; 2021-10-15 07:30)
DX: G56.02 Carpal tunnel syndrome, left upper limb (principal); R73.03 Prediabetes; E78.5 Hyperlipidemia, unspecified; K21.9 Gastro-esophageal reflux disease without esophagitis
CPT/HCPCS: 29848; J0690; J2250

== ENCOUNTER 2021-10-17 05:05 | Outpatient (CLI) | payer OTHER, SELFPAY ==
[2021-10-17 13:27] LABS: Hemoglobin A1C 6.4 % (<5.7)
[2021-10-17 13:33] LABS: Anion Gap 9.7 mmol/L (3-11); BUN 23 mg/dL (7-18); CO2 25.3 mmol/L (21.0-32.0); CREATININE 0.8 mg/dL (0.70-1.30); Calcium 8.6 mg/dL (8.5-10.1); Calculated LDL 90 mg/dL (<100); Chloride 103 mmol/L (98-107); Cholesterol 166 mg/dL (<200); Estimated GFR 100.69 (mL/min/1.73m2); Glucose 93 mg/dL (74-106); HDL Cholesterol 59 mg/dL (40-60); Potassium 4.2 mmol/L (3.5-5.1); Sodium 138 mmol/L (136-145); TSH (W/Ref FT4) 1.61 uIU/mL (0.36-3.74); Triglyceride 87 mg/dL (<150)
== END 2021-10-17 05:06 | disposition home or self-care (01) ==
LOC: LOS 05:06
PROVIDERS: PCP Nurse Practitioner Family; Visit Provider Nurse Practitioner Family
DX: I10 Essential (primary) hypertension (principal); R73.03 Prediabetes; N40.0 Benign prostatic hyperplasia without lower urinary tract symptoms
CPT/HCPCS: 36415; 80048; 80061; 84153; 83036; 84443

== ENCOUNTER 2021-10-31 03:58 | Outpatient (CLI) | payer OTHER, SELFPAY ==
[2021-10-31 12:29] LABS: HCT 30.7 % (40.0-50.0); MCH 21.6 pg (27.0-33.0); MPV 8.9 fL (8.0-11.0); Platelet Count 419 10^3/uL (130-400); RBC 4.12 10^6/uL (4.36-5.78); RDW 17.4 % (11.8-14.1); RDW-SD 46.8 fL; WBC 5.46 10^3/uL (4.4-10.8)
[2021-10-31 12:48] LABS: HGB 8.9 g/dL (13.5-17.5); MCV 75 fL (80-95)
== END 2021-10-31 03:59 | disposition home or self-care (01) ==
LOC: LOS 03:58
PROVIDERS: PCP Nurse Practitioner Family; Visit Provider Nurse Practitioner Family
DX: K62.5 Hemorrhage of anus and rectum (principal)
CPT/HCPCS: 36415; 85027

== ENCOUNTER 2021-11-01 01:16 | Outpatient (CLI) | payer OTHER, SELFPAY ==
[2021-11-01 12:38] LABS: Total Iron Binding Capacity 441 ug/dL (250-450)
[2021-11-01 12:55] LABS: ALT 24 U/L (16-63); AST 23 U/L (15-37); Albumin 3.8 g/dL (3.4-5.0); Alkaline Phosphatase 61 U/L (46-116); Anion Gap 10.1 mmol/L (3-11); BUN 25 mg/dL (7-18); Bilirubin, Total 0.4 mg/dL (0.2-1.0); CO2 25.9 mmol/L (21.0-32.0); CREATININE 0.9 mg/dL (0.70-1.30); Calcium 8.9 mg/dL (8.5-10.1); Chloride 99 mmol/L (98-107); Estimated GFR 97.17 (mL/min/1.73m2); Ferritin 7 ng/mL (26-388); Glucose 97 mg/dL (74-106); Potassium 4.2 mmol/L (3.5-5.1); Sodium 135 mmol/L (136-145); Total Protein 7.8 g/dL (6.4-8.2)
== END 2021-11-01 01:17 | disposition home or self-care (01) ==
LOC: LOS 01:17
PROVIDERS: PCP Nurse Practitioner Family; Visit Provider Nurse Practitioner Family
DX: K62.5 Hemorrhage of anus and rectum (principal)
CPT/HCPCS: 36415; 80053; 82728; 83550

== ENCOUNTER 2021-12-03 07:21 | Day surgery (SDC) | payer OTHER, SELFPAY ==
[2021-12-03 07:25] VITALS: BP 139/84; PULSE 84; RESP 18; TEMP 36.5; O2SAT 98
[2021-12-03] MEDS: Lactated Ringers 1,000 ML 80 ML IV (07:49)
--- NOTE | 2021-12-03 08:08 | W.ANESPRE ---
General Info Date of Service Date Performed: 12/03/21 Height: 6 ft 1 in Weight: 118.9 kg Body Mass Index (BMI): 34.5 Surgical Procedure: Operation Date: 12/03/21 09:10 Proposed Procedure Side Surgeon p Colonoscopy/Gastroscopy DO kel Lynch Hemorrhoid Banding Aneta Salamanca DO Meds Allergies and Home Medications Allergies Allergy/AdvReac Type Severity Reaction Status Date / Time amlodipine AdvReac Intermediate Swelling Verified 12/03/21 07:30 of feet on 5 mg latex AdvReac Verified 12/03/21 07:30 Home Medication Medication Instructions Recorded multivitamin 1 ea PO DAILY 11/23/12 omeprazole 20 mg capsule,delayed 20 mg PO .Every other day #90 caps 03/02/20 release lisinopril 10 1 tab PO DAILY #90 tab-caps 04/10/21 mg-hydrochlorothiazide 12.5 mg tablet cyanocobalamin (vitamin B-12) 1,000 mcg PO DAILY 04/23/21 1,000 mcg tablet (Vitamin B-12) ibuprofen 600 mg tablet 600 mg PO TID PRN pain #90 tabs 05/15/21 glutamine 500 mg tablet 500 mg PO BID 06/06/21 (L-Glutamine) acetaminophen 500 mg tablet 1,000 mg PO TID PRN 10/15/21 magnesium oxide 500 mg capsule 500 mg PO DAILY 10/28/21 ferrous sulfate 325 mg (65 mg 325 mg PO DAILY #90 tabs 11/05/21 iron) tablet,delayed release sildenafil 50 mg tablet (Viagra) 50 mg PO DAILY PRN sexual activity 11/05/21 #30 tabs bisacodyl 5 mg tablet,delayed 5 mg PO ONCE #4 tabs 11/21/21 release (Dulcolax (bisacodyl)) polyethylene glycol 3350 17 17 g PO ONCE #238 grams 11/21/21 gram/dose oral powder psyllium husk 3.4 gram/5.4 gram 1 tbsp PO TID 11/21/21 oral powder (Metamucil) Current Visit Medications: Current Medications Generic Name Dose Route Start Last Admin Trade Name Freq PRN Reason Stop Dose Admin Ringer's Solution 1,000 mls @ 80 mls/hr 12/03/21 06:00 12/03/21 07:49 IV 01/01/22 23:59 80 mls/hr INFUSION CHRISTIANO Administration Iron Sucrose 200 mg/ Sodium 110 mls @ 440 mls/hr 12/03/21 06:00 Chloride IVPB 12/03/21 16:00 [facility] IV Miscellaneous Supplies 1 each 12/03/21 06:00 Iv Access IV 01/01/22 23:59 DIRECTED CHRISTIANO Sodium Chloride 0 ml 12/03/21 06:00 Normal Saline Flush 10 Ml Syr IV 01/01/22 23:59 PRN PRN Sodium Chloride 0 ml 12/03/21 06:00 Normal Saline 10 Ml Vial IJ 01/01/22 23:59 DIRECTED PRN Sterile Water 0 ml 12/03/21 06:00 Water,Injection,Sterile 10 Ml Vial IJ 01/01/22 23:59 DIRECTED PRN PFSH Active Problems Active Problems: Problem Status Onset Code Internal hemorrhoid, bleeding K64.8 Iron deficiency anemia due to chronic blood loss D50.0 Rectal bleeding ~2013 K62.5 Essential hypertension I10 BPH without urinary obstruction N40.0 Osteoarthritis of right knee M17.11 Right lumbar radiculopathy M54.16 GERD (gastroesophageal reflux disease) K21.9 Hyperlipidemia E78.5 Prediabetes R73.03 Medical History Medical History COVID-19 06/20/21 Surgical History Surgical History Carpal tunnel syndrome of left wrist (10/15/21) S/P ECTR: 10/15/2021 Carpal tunnel syndrome of right wrist (05/15/21) S/P ECTR: 05/15/2021 History of esophagogastroduodenoscopy (EGD) (07/29/13) History of lumbar surgery 10/2019-s/p decompression l3-L5, neurosx at [facility] History of total right hip replacement (04/24/21) S/P ear surgery ear drum removal and replacement S/P right knee arthroscopy (~10/2000) meniscus repair S/P tonsillectomy Tobacco Smoking/Tobacco Use Status: Never Passive smoking exposure: Yes Alcohol Alcohol Intake: current Alcohol intake frequency: a few times a month Substance Use Substance use: Never Substance use type: does not use Vital Signs and Lab Results Vital Signs Most Recent Vital Signs in EMR: Most Recent Vital Signs Temp Pulse Resp BP Pulse Ox 36.5 C 84 18 139/84 98 12/03/21 07:25 12/03/21 07:25 12/03/21 07:25 12/03/21 07:25 12/03/21 07:25 Lab Results Result Diagrams: 12/02/21 05:35 Blood Type / Crossmatch: No Data to Display Complete Blood Count: No Data to Display Complete Metabolic Panel: No Data to Display Liver Function Panel: No Data to Display Coagulation Panel: No Data to Display Cardiac Panel: No Data to Display Arterial Blood Gas: No Data to Display Venous Blood Gas: No Data to Display Pancreas Panel: No Data to Display Thyroid Panel: No Data to Display Infectious Disease: No Data to Display Blood Cultures: No Data to Display Toxicology Panel: No Data to Display Imaging and Studies Imaging and Studies Study information below may be from another EMR and interpreted by another provider. Please see original notes in EMR for more complete details. EKG Summary: 2020: sinus rhythm. Stress Test Summary: 2020: no symptoms of ischemia, non-diagnostic EKG. MPI EF 42%, no WMA, no evidence of ischemia. Anesthesia Assessment and Plan Anesthesia History Personal History: No History of Anesthesia Complications Family History: No Family History of Anesthesia Complications Exercise Tolerance Exercise Tolerance: Metabolic Equivalents>4 Cardiac & Pulmonary Exam Cardiac Exam: Normal S1/S2 Heart Sounds Pulmonary Exam: Clear Bilateral Breath Sounds Implantable Cardiac Device Does patient have a Pacemaker or an ICD?: No Airway Exam Known Difficult Airway: No Mallampati Class: 2 Mouth Opening: Normal (> 3cm) Thyromental Distance: Greater than 3 cm Neck Range of Motion: Limited ROM Neck Circumference: Normal Teeth Condition: Normal Dentition ASA Classification ASA Score: ASA 2 Emergency Case?: No NPO Status NPO Status: NPO Clears >2 hours, Solids >8 hours Anesthesia Plan Resuscitation Status: Full Code Anesthesia Technique: General Anesthesia Airway Planned: Natural Airway Monitors Used: Standard Monitors Preoperative Comments:: 61 yo male with bleeding for EGD/colo. Sig PMHx: low back pain (l3-5 right facetectomy), HTN (lisinopril), GERD (omeprazole), never smoker, occ EtOH, neck pain, low iron. Previous Anes: glide S4 grade 1, not masked.
[2021-12-03 08:26] VITALS: BMI 34.5
--- NOTE | 2021-12-03 08:58 | STOM_PTH ---
PATIENT: Russ Patten LOC: [facility] U#:[id number] AGE/SX: 61/M ROOM: RE12/03/[address]: Aneta Salamanca : 1960 BED: DIS: 12/03/2021 SPEC #: [id number] RECD: 12/03/21 12:52 STATUS: MARKOS HICKMAN #: [id number] SEBASTIAN: 12/03/21 08:[address]: Aneta Salamanca DEPT: Surgical Specimen RECD BY: Catalina Pascal ENTERED: 12/03/21 12:54 SP TYPE: STOMACH OTHR DR: Ragini Tinoco, REEL REPAIRER Tissues: 1 - BIOPSY BOWEL 2 - BIOPSY BOWEL 3 - STOMACH BIOPSY 4 - STOMACH BIOPSY 5 - STOMACH BIOPSY 6 - ESOPHAGUS BIOPSY 7 - ESOPHAGUS BIOPSY Procedures: GROSS AND MICRO LEVEL 4 IMMUNOPEROXIDASE STAIN Comments: [id number]
--- NOTE | 2021-12-03 09:31 | PDOC.DSDIS_ITS ---
Discharge Plan Disposition Patient Disposition: HOME Condition: Good Discharge Details Reason For Visit: stomach and colon scope/hemorrhoid banding Attending Provider: Aneta Salamanca Primary Care Provider: Ragini Tinoco Home Meds and New Rx's Prescriptions: Continued L-Glutamine 500 mg tablet 500 mg PO BID magnesium oxide 500 mg capsule 500 mg PO DAILY Metamucil 3.4 gram/5.4 gram powder 1 tbsp PO TID Rx Instructions: mix into at least 8 oz of water or juice before administering multivitamin 1 EACH tablet 1 ea PO DAILY omeprazole 20 mg capsule,delayed release(DR/EC) 20 mg PO .Every other day Qty: 90 4RF lisinopril-hydrochlorothiazide 10-12.5 mg tablet 1 tab PO DAILY Qty: 90 4RF sildenafil [Viagra] 50 mg tablet 50 mg PO DAILY PRN (Reason: sexual activity) Qty: 30 2RF Rx Instructions: administer 1 to 4 hours before activity ferrous sulfate 325 mg (65 mg iron) tablet,delayed release (DR/EC) 325 mg PO DAILY Qty: 90 3RF cyanocobalamin (vitamin B-12) [Vitamin B-12] 1,000 mcg Tablet 1,000 mcg PO DAILY acetaminophen 500 mg tablet 1,000 mg PO TID PRN Discontinued bisacodyl [Dulcolax (bisacodyl)] 5 mg tablet,delayed release (DR/EC) 5 mg PO ONCE Qty: 4 0RF Rx Instructions: Take according to provider's instructions for colonoscopy prep. polyethylene glycol 3350 17 gram/dose powder 17 g PO ONCE Qty: 238 0RF Rx Instructions: To be taken as directed by prescriber's office for colonoscopy prep. No Action ibuprofen 600 mg tablet 600 mg PO TID PRN (Reason: pain) Qty: 90 0RF Discharge Instructions Additional Instructions: DSU Colonoscopy Post- Op Instructions Instructions for Everyone who is given Anesthesia: For your safety, please do the following for the next twenty-four (24) hours: *Do Not operate a motor vehicle (car, truck, motorcycle, etc.) *Do Not drink alcoholic beverages or use any recreational drugs for the first 24 hours or while taking pain medications. The medications in your body may have a reaction that can be dangerous. *Do Not make any important decisions or sign any important papers. Findings: mild gastritis/hiatal hernia diverticula/internal hemorrhoids x3 Follow up: 2 wks 1. No lifting over 20 pounds or strenuous activity for the first 24 hours after your procedure. After 24 hours there are no restrictions on your activity but you may feel fatigued for a few days. 2. After you arrive home you may have a light meal and return to your normal diet as you can tolerate it without feeling sick to your stomach. 3. You may have a bloated, gaseous feeling in your belly (abdomen) after a colonoscopy. Passing gas and belching will help. Walking or lying down on your left side with your knees flexed may relieve the discomfort. Pain Relief From Hemorrhoids Hemorrhoid banding itself is not painful, but it is normal for patients to experience a sense of fullness or pressure after the procedure. Tylenol or Ibuprofen usually alleviates any symptoms. Post-Procedure Do's & Don'ts Do?s: ? Take fiber supplements to avoid constipation ? Squeeze your buttocks muscles 10-15 times every two hours ? Take 10-15 deep breaths every 1-2 hours ? Drink plenty of water ? Engage in moderate exercise ? Take a sitz bath ? soaking in a tub of warm water ? after every bowel movement Don?ts: ? Stay seated for more than 2-3 hours ? Rub or scrub the anus too vigorously ? Try to force a bowel movement ? if you cannot go, stop and try again later ? Insert anything into the anus for two weeks ? unless you have been prescribed anorectal medication ? Avoid alcohol, as it can dehydrate you and lead to constipation Occasionally, you may experience bleeding after the hemorrhoid banding procedure. Do not be concerned if there is a minimal amount of blood. However, if bleeding continues, lie flat with your bottom higher than your head and apply an ice pack to the area. If the bleeding does not stop within a half-hour, call our office or go to the emergency room. Bleeding complications are uncommon and occur <1% of the time. Additional Tips ? To avoid constipation, take two tablespoons of natural wheat bran, natural oat bran, flax, Benefiber or any over the counter fiber supplement with 7-8 glasses of water daily. Call the office at [phone] (Office) or [phone] (Hospital) right away if you notice any of the following: a.Vomiting of blood or ?coffee ground stools?. b.Rectal bleeding 1Tbsp, blood clots or continuous bleeding. c.Severe belly (abdominal) pain. d.A hard distended belly (abdomen) and an inability to pass gas. 4. Please don?t expect to have a normal BM (bowel movement) for 2-3 days after your procedure. 5. If there are questions regarding the findings of your procedure, please contact your doctor 6. If you are unable to contact your doctor with a problem, contact the hospital at [phone]. 7. Continue all your regular medications unless directed otherwise. I understand the above instructions and have no questions. Signature of Patient or Adult Escort Name of Responsible Adult Escort Signature of Nurse Date/Time Activity:: see above Diet:: see above
[2021-12-03 09:35] VITALS: BP 107/72; PULSE 76; RESP 20; TEMP 36.2; O2SAT 96
--- NOTE | 2021-12-03 09:35 | W.COLOREPORT ---
Colonoscopy Report Date of procedure: 12/03/21 Pre-op diagnosis general: Fe defn anemia Post-op diagnosis procedure note: other (diverticula/hemorrhoids ) Surgeon: Aneta Salamanca Anesthesia Type: General:No Airway Estimated blood loss (mL): 0 Pathology: none sent Complications: None Disposition: same day Prep: Miralax/Dulcolax Retraction Time: 9 Procedure Description: After informed consent was obtained the patient was taken to the procedure room and placed in a left decubitous position. Monitors were applied and a time out was done. The patients name, date of , procedure, allergies to medications and metal in their body was reviewed. The patient was then sedated. Once sedated and comfortable a rectal exam was done. External exam was normal. Internal exam revealed a normal sphincter tone and no palpable masses. The scope was then introduced and retrofelexed. Grade II internal hemorrhoids were identified. The scope was then advanced to the cecum w/out difficulty. The TI and appendiceal orifice were identified. The prep was a BB PS 3 in all segments for a total of 9. The scope was then slowly retracted over 9 minutes back into the rectum. There are no polyps noted. He does have moderate diverticular disease of the sigmoid colon with no signs of active bleeding or infection. He does have a less than half a dozen diverticula noted in the right colon as well. The patient does have grade 2 hemorrhoids in all 3 quadrants. These are banded. No bleeding is noted. The scope was removed and the patient was woken up and taken back to Same day surgery in stable condition. The patient tolerated the procedure well and there were no immediate complications. Follow up: The patient should follow up in 10 years unless they develop changes in bowel habits or other new gastrointestinal complaints.
--- NOTE | 2021-12-03 09:38 | PDOC.DSDIS_ITS ---
Discharge Plan Disposition Patient Disposition: HOME Condition: Good Discharge Details Reason For Visit: stomach and colon scope/hemorrhoid banding Attending Provider: Aneta Salamanca Primary Care Provider: Ragini Tinoco Home Meds and New Rx's Prescriptions: Continued L-Glutamine 500 mg tablet 500 mg PO BID magnesium oxide 500 mg capsule 500 mg PO DAILY Metamucil 3.4 gram/5.4 gram powder 1 tbsp PO TID Rx Instructions: mix into at least 8 oz of water or juice before administering multivitamin 1 EACH tablet 1 ea PO DAILY lisinopril-hydrochlorothiazide 10-12.5 mg tablet 1 tab PO DAILY Qty: 90 4RF sildenafil [Viagra] 50 mg tablet 50 mg PO DAILY PRN (Reason: sexual activity) Qty: 30 2RF Rx Instructions: administer 1 to 4 hours before activity ferrous sulfate 325 mg (65 mg iron) tablet,delayed release (DR/EC) 325 mg PO DAILY Qty: 90 3RF cyanocobalamin (vitamin B-12) [Vitamin B-12] 1,000 mcg Tablet 1,000 mcg PO DAILY acetaminophen 500 mg tablet 1,000 mg PO TID PRN Changed omeprazole 20 mg capsule,delayed release(DR/EC) 20 mg PO DAILY Qty: 90 4RF Discontinued bisacodyl [Dulcolax (bisacodyl)] 5 mg tablet,delayed release (DR/EC) 5 mg PO ONCE Qty: 4 0RF Rx Instructions: Take according to provider's instructions for colonoscopy prep. polyethylene glycol 3350 17 gram/dose powder 17 g PO ONCE Qty: 238 0RF Rx Instructions: To be taken as directed by prescriber's office for colonoscopy prep. ibuprofen 600 mg tablet 600 mg PO TID PRN (Reason: pain) Qty: 90 0RF Discharge Instructions Additional Instructions: [facility] Colonoscopy Post- Op Instructions Instructions for Everyone who is given Anesthesia: For your safety, please do the following for the next twenty-four (24) hours: *Do Not operate a motor vehicle (car, truck, motorcycle, etc.) *Do Not drink alcoholic beverages or use any recreational drugs for the first 24 hours or while taking pain medications. The medications in your body may have a reaction that can be dangerous. *Do Not make any important decisions or sign any important papers. Findings: mild gastritis/hiatal hernia Continue with lifestyle modifications: no alcohol, tobacco products, Aspirin or NSAID's (ibuprofen, Motrin, Naprosyn, aleve, etc), soda pop/any carbonated beverages, caffeine (including tea & chocolate), and acidic foods, (tomatoes, citrus, onions, peppermints) spicy or fried/fatty foods. Do not lie down for 30 minutes after eating, and do not eat 2 hours prior to bedtime. Avoid wearing tight fitting clothing/ belts diverticula/internal hemorrhoids x3 Follow up: 2 wks 1. No lifting over 20 pounds or strenuous activity for the first 24 hours after your procedure. After 24 hours there are no restrictions on your activity but you may feel fatigued for a few days. 2. After you arrive home you may have a light meal and return to your normal diet as you can tolerate it without feeling sick to your stomach. 3. You may have a bloated, gaseous feeling in your belly (abdomen) after a colonoscopy. Passing gas and belching will help. Walking or lying down on your left side with your knees flexed may relieve the discomfort. Pain Relief From Hemorrhoids Hemorrhoid banding itself is not painful, but it is normal for patients to experience a sense of fullness or pressure after the procedure. Tylenol or Ibuprofen usually alleviates any symptoms. Post-Procedure Do's & Don'ts Do?s: ? Take fiber supplements to avoid constipation ? Squeeze your buttocks muscles 10-15 times every two hours ? Take 10-15 deep breaths every 1-2 hours ? Drink plenty of water ? Engage in moderate exercise ? Take a sitz bath ? soaking in a tub of warm water ? after every bowel movement Don?ts: ? Stay seated for more than 2-3 hours ? Rub or scrub the anus too vigorously ? Try to force a bowel movement ? if you cannot go, stop and try again later ? Insert anything into the anus for two weeks ? unless you have been prescribed anorectal medication ? Avoid alcohol, as it can dehydrate you and lead to constipation Occasionally, you may experience bleeding after the hemorrhoid banding procedure. Do not be concerned if there is a minimal amount of blood. However, if bleeding continues, lie flat with your bottom higher than your head and apply an ice pack to the area. If the bleeding does not stop within a half-hour, call our office or go to the emergency room. Bleeding complications are uncommon and occur <1% of the time. Additional Tips ? To avoid constipation, take two tablespoons of natural wheat bran, natural oat bran, flax, Benefiber or any over the counter fiber supplement with 7-8 glasses of water daily. Call the office at [phone] (Office) or [phone] (Hospital) right away if you notice any of the following: a.Vomiting of blood or ?coffee ground stools?. b.Rectal bleeding 1Tbsp, blood clots or continuous bleeding. c.Severe belly (abdominal) pain. d.A hard distended belly (abdomen) and an inability to pass gas. 4. Please don?t expect to have a normal BM (bowel movement) for 2-3 days after your procedure. 5. If there are questions regarding the findings of your procedure, please contact your doctor 6. If you are unable to contact your doctor with a problem, contact the hospital at [phone]. 7. Continue all your regular medications unless directed otherwise. I understand the above instructions and have no questions. Signature of Patient or Adult Escort Name of Responsible Adult Escort Signature of Nurse Date/Time Activity:: see above Diet:: see above
--- NOTE | 2021-12-03 09:41 | ENDO_ITS ---
Date of service: 12/03/21 Time of Service: 09:42 Endoscopy Report DATE OF PROCEDURE: 12/03/21 PRE-OP DIAGNOSIS: gerd/Fe defn reflux POST-OP DIAGNOSIS: other (gastritis/hiatal hernia) SURGEON: Aneta Salamanca ANESTHESIA TYPE: General:No Airway ESTIMATED BLOOD LOSS: 2 PATHOLOGY: other COMPLICATIONS: None DISPOSITION: same day PROCEDURE DESCRIPTION: After informed consent was obtained the patient was take to the procedure room and placed in a supine position. Monitors were applied and a time out was done. The patients name, date of , procedure type, allergies to medications and metal in their body was reviewed. A bite block was placed and the patient was sedated. Once sedated and comfortable the gastroscope was advanced through the oropharynx which was grossly normal into the esophagus. The proximal and mid- esophagus were nl. In the distal esophagus there was mild esophagitis noted. There are no varices, diverticula, stenosis noted. The scope was advanced into the stomach and through the pylorus into the 3rd portion of the duodenum. The duodenum was noted to be normal. Biopsies were done no. The scope was retracted back into the stomach and biopsies were done to rule out H. pylori. There is mild gastritis in the antral region- bx were done. The scope was retroflexed. The cardia and fundus were noted to be normal. There moderate 2cm sliding hiatal hernia noted. The scope was retracted back into the esophagus and biopsies were done of the GE junction to rule out Gomez's. The Z line was regular. The GE junction was at 36 cm. Distal esophagus is at 38 cm. I do not think this accounts for the patient's blood loss. The scope was removed and the patient was woken up and taken back to [facility] in stable condition. Follow up: 2 wks
[2021-12-03] MEDS: IRON SUCROSE COMPLEX 200 MG in Normal Saline 100 ML 440 MG IVPB (09:44)
--- NOTE | 2021-12-03 09:49 | W.ANESPOSTOP ---
Postoperative Evaluation Date, Time and Location Date Performed: 12/03/21 Time Performed: 09:49 Patient Location: Day Surgery Unit Vital Signs Most Recent Imported Vital Signs: Most Recent Vital Signs Temp Pulse Resp BP Pulse Ox 36.2 C L 76 20 107/72 96 12/03/21 09:35 12/03/21 09:35 12/03/21 09:35 12/03/21 09:35 12/03/21 09:35 Pain Score Most Recent Pain Score: Most Recent Pain Score Pain Level 2 12/03/21 09:35 Assessment Mental Status: Awake (Alert & Oriented to Patient Baseline) Airway and Respiratory Function: Patent airway with normal (patient baseline) respiratory exam Cardiovascular Function: Hemodynamically Stable Hydration Status: Adequately Hydrated Nausea & Vomiting: No Nausea or Vomiting Pain: Pt. Denies Any Pain Peripheral Nerve Block: Patient did not receive a nerve block
[2021-12-03 09:55] VITALS: BP 112/78; PULSE 80; RESP 18; TEMP 36.2; O2SAT 96
== END 2021-12-03 10:55 | disposition home or self-care (01) ==
PROVIDERS: PCP Nurse Practitioner Family; Visit Provider Surgery
PROC: (CPT 45398; principal; 2021-12-03 09:00)
DX: K62.5 Hemorrhage of anus and rectum (principal); K64.1 Second degree hemorrhoids; K21.00 Gastro-esophageal reflux disease with esophagitis, without bleeding; D50.0 Iron deficiency anemia secondary to blood loss (chronic); K44.9 Diaphragmatic hernia without obstruction or gangrene; K29.70 Gastritis, unspecified, without bleeding; K57.30 Diverticulosis of large intestine without perforation or abscess without bleeding; B96.81 Helicobacter pylori [H. pylori] as the cause of diseases classified elsewhere; K22.89 Other specified disease of esophagus; K31.89 Other diseases of stomach and duodenum
CPT/HCPCS: 45398; 43239; 88305; 85025; 88361; J1756; J2704

== ENCOUNTER 2021-12-10 02:13 | Outpatient (RCR) | payer OTHER, SELFPAY ==
[2021-11-25] MEDS: IRON SUCROSE COMPLEX 200 MG in Normal Saline 100 ML 440 MG IVPB (11:21)
[2021-11-25] MEDS: Normal Saline Flush 10 ML SYR IVP (11:22)
[2021-12-10] MEDS: IRON SUCROSE COMPLEX 200 MG in Normal Saline 100 ML 440 MG IVPB (12:57)
[2021-12-10] MEDS: Normal Saline Flush 10 ML SYR IVP (12:57)
== END 2021-12-16 23:59 | disposition home or self-care (01) ==
LOC: INF 02:13
PROVIDERS: PCP Nurse Practitioner Family; Visit Provider Surgery
DX: D50.0 Iron deficiency anemia secondary to blood loss (chronic) (principal)
CPT/HCPCS: 96365; J1756

== ENCOUNTER → 2021-12-13 17:43 | Outpatient (CLI) | payer OTHER, SELFPAY ==
--- NOTE | 2021-12-13 15:30 | DI.RAD_ITS ---
Exam(s) XR KNEE LT 4V AP,LAT,AMOR,PAT EXAM: XR KNEE LT 4V AP,LAT,AMOR,PAT CLINICAL HISTORY: left knee pain, M25.562, ? effusion. TECHNIQUE: 2D digital imaging was performed of the left knee. Four images were obtained. Merchant, AP, lateral and PA tunnel views were obtained. COMPARISON: No priors for comparison. FINDINGS: BONES: No acute fracture is present. No bony destructive lesion is seen. JOINTS: Degenerative changes are seen in the knee with joint space narrowing and periarticular spurri ng. The findings are most marked in the medial femoral tibial and patellofemoral joint. There is a very small joint effusion. SOFT TISSUE: Normal. IMPRESSION: 1. DJD of the left knee. 2. Small joint effusion. DATA REPOSITORY: RADIATION DOSE DELIVERED:
--- NOTE | 2021-12-13 15:30 | DI.US_ITS ---
Exam(s) US LOWER EXTREMITY VENOUS LT EXAM: US LOWER EXTREMITY VENOUS LT CLINICAL HISTORY: left lower extremity swelling/edema, R60.0 TECHNIQUE: Left lower extremity venous ultrasound performed using grayscale, color-flow, and spectra l Doppler analysis. COMPARISON: No exams were available for comparison FINDINGS: The left common femoral, femoral and popliteal veins demonstrate normal compressibility, augmentation , and color Doppler. The posterior tibial veins are patent. The saphenofemoral junction is unremarka ble. There is no evidence of a Montalvo cyst. There is a 4.7 x 0.8 cm complex fluid collection in the medial left knee. This is non-specific this may represent hematoma or edema. Please correlate with the patient's clinical history. IMPRESSION: No evidence of a left lower extremity DVT. DATA REPOSITORY:
== END ==
PROVIDERS: PCP Nurse Practitioner Family; Visit Provider Nurse Practitioner Family
DX: M17.12 Unilateral primary osteoarthritis, left knee (principal); R60.0 Localized edema; M25.462 Effusion, left knee
CPT/HCPCS: 73564; 93971

== ENCOUNTER 2022-01-21 03:43 | Outpatient (CLI) | payer OTHER, SELFPAY ==
[2022-01-21 12:38] LABS: Abs Immature Grans 0.01 10^3/uL (0.0-0.06); Absolute Basophil Count 0.08 10^3/uL (0.0-0.2); Absolute Lymphocyte Count 1.75 10^3/uL (1.2-3.4); Absolute Monocyte Count 0.56 10^3/uL (0.1-0.8); Absolute Neutrophil Count 3.21 10^3/uL (1.2-6.7); Basophils % 1.4; Eosinophils % 1.8; HGB 11.8 g/dL (13.5-17.5); Immature Grans % 0.2; Lymphocytes % 30.6; MCH 24.1 pg (27.0-33.0); MCHC 31.1 % (32.0-36.0); MCV 78 fL (80-95); MPV 9.5 fL (8.0-11.0); Monocytes % 9.8; Neutrophils % 56.2; Platelet Count 374 10^3/uL (130-400); RDW 21.8 % (11.8-14.1); Reticulocyte 0.5 % (0.5-2.4); WBC 5.71 10^3/uL (4.4-10.8)
[2022-01-21 12:51] LABS: Anisocytosis 2+; Diff Comment RBC Morph Reviewed
[2022-01-21 12:52] LABS: Iron 35 ug/dL (65-175); Total Iron Binding Capacity 391 ug/dL (250-450); Transferrin Sat 9 % (20-55)
[2022-01-21 12:59] LABS: Hemoglobin A1C 5.7 % (<5.7)
[2022-01-21 13:05] LABS: Ferritin 12 ng/mL (26-388)
[2022-01-21 13:08] LABS: Folate > 20.0 ng/mL (8.6-20.0)
[2022-01-21 22:02] LABS: CRP, High Sensitivity 1.92 mg/L (See Note)
[2022-01-22 11:38] LABS: Transferrin 312 mg/dL (201-352)
[2022-01-23 13:50] LABS: Creatine Kinase 266 U/L (39 - 308)
[2022-02-03 11:46] LABS: BB Fraction 0 % (0); MB Fraction 0 % (0); MM Fraction 100 % (100)
== END 2022-01-21 03:44 | disposition home or self-care (01) ==
LOC: LOS 03:43
PROVIDERS: Nurse Practitioner Family; PCP Nurse Practitioner Family; Visit Provider Surgery
DX: R73.03 Prediabetes (principal); B96.81 Helicobacter pylori [H. pylori] as the cause of diseases classified elsewhere; D50.0 Iron deficiency anemia secondary to blood loss (chronic); K21.9 Gastro-esophageal reflux disease without esophagitis; K29.70 Gastritis, unspecified, without bleeding; K44.9 Diaphragmatic hernia without obstruction or gangrene; K62.5 Hemorrhage of anus and rectum; K64.8 Other hemorrhoids
CPT/HCPCS: 36415; 86141; 82550; 82552; 82728; 82746; 83036; 83540; 83550; 84466; 85025; 85045

== ENCOUNTER 2022-02-04 21:12 | Emergency (ER) | payer OTHER, SELFPAY ==
[2022-02-04] VITALS (18 sets, daily range): BP systolic 101–139; BP diastolic 57–83; PULSE 53–75; RESP 9–17; TEMP 36.5; O2SAT 98
--- NOTE | 2022-02-04 21:15 | DI.RAD_ITS ---
Exam(s) XR SHOULDER RT COMPLETE 2+V EXAM: XR SHOULDER RT COMPLETE 2+V CLINICAL HISTORY: fall/pain. TECHNIQUE: 2D digital imaging was performed. COMPARISON: CR XR SHOULDER RT COMPLETE 2+V from 08/02/2019 FINDINGS: 3 views There is anterior dislocation of the humeral head. No obvious acute fracture. 5 x 3 millimeter calcific density is seen anterior to the proximal diaphysis of the humerus which may be a loose body in the biceps tendon sheath. IMPRESSION: Anterior dislocation of the humeral head. DATA REPOSITORY: RADIATION DOSE DELIVERED:
--- NOTE | 2022-02-04 21:26 | W.ED.GENAD ---
Discharge Plan Disposition Patient Disposition: Home Condition: Improving Discharge Details Clinical Impression: Anterior dislocation of right shoulder Primary Care Provider: Ragini Tinoco ED Provider: Reagan Neves Home Meds and New Rx's Prescriptions: Continued L-Glutamine 500 mg tablet 500 mg PO BID magnesium oxide 500 mg capsule 500 mg PO DAILY Metamucil 3.4 gram/5.4 gram powder 1 tbsp PO TID Rx Instructions: mix into at least 8 oz of water or juice before administering multivitamin 1 EACH tablet 1 ea PO DAILY lisinopril-hydrochlorothiazide 10-12.5 mg tablet 1 tab PO DAILY Qty: 90 4RF sildenafil [Viagra] 50 mg tablet 50 mg PO DAILY PRN (Reason: sexual activity) Qty: 30 2RF Rx Instructions: administer 1 to 4 hours before activity cyanocobalamin (vitamin B-12) [Vitamin B-12] 1,000 mcg Tablet 1,000 mcg PO DAILY acetaminophen 500 mg tablet 1,000 mg PO TID PRN omeprazole 20 mg capsule,delayed release(DR/EC) 20 mg PO DAILY Qty: 90 4RF Discharge Instructions Instructions: Shoulder Dislocation (ED) Additional Instructions: Shoulder was successfully reduced. Wear sling until reevaluation by orthopedics. In the meantime cool compresses every 2 hours for 20 minutes. [id number] medications as directed for symptomatic control. Please watch for new or worsening symptoms and return to the ER for any concerns. Please contact the orthopedic office tomorrow to discuss your ER visit need for outpatient reevaluation. Referrals: Ismael Ragland MD [ [facility] STAFF PHYSICIAN] - Discharge Data Discharge Date/Time-TO BE ENTERED AT DEPARTURE: 02/04/22 23:40 Medical Decision Making <MEGAN Burger - Last Filed: 02/06/22 08:20> 61-year-old gentleman who is right-hand dominant, not anticoagulated, presents for mechanical slip and fall at work 1 hour ago injuring his right shoulder, concern for dislocation. Clinically certainly appears to be dislocated. Will obtain IV access, give 2 mg IV Dilaudid, and obtain x-ray. X-ray does reveal a anterior dislocation. Case discussed with Dr. Mota who performed procedural sedation while I reduced the dislocation. Please see his note. Successfully reduced the shoulder. Patient tolerated well. Neuro, vascular, tendon intact. Shoulder sling applied. Post reduction film successful. Patient tolerated p.o. intake and ambulating steadily. He was observed post sedation until he was back to his baseline and his is comfortable taking him home and his condition. Orthopedic referral given, patient placed on the orthopedic list. Take home pack of Percocet provided Standard discharge and return precautions were provided. Patient understands, is agreeable to this plan, and has no additional questions or concerns upon discharge. This documentation was generated using [employer] system, please disregard any oddities of phrase or misspellings. Medical Records Medical records reviewed: Yes I reviewed the patient's medical records. Imaging Data Radiologic Study: Attestation: I personally reviewed and interpreted this imaging study as follows: Imaging: X-Ray Radiologist's impression: PROCEDURE INFORMATION: Exam: XR Right Shoulder Exam date and time: 02/04/2022 9:55 PM Age: 61 years old Clinical indication: Injury or trauma; Work related; Blunt trauma (contusions or hematomas); Right; Injury date: 02/04/22; Injury details: Fall on shoulder TECHNIQUE: Imaging protocol: Radiologic exam of the Right shoulder. Views: 2 or more views. COMPARISON: CR XR SHOULDER RT COMPLETE 2+V 08/02/2019 10:25 AM FINDINGS: Bones/joints: There is a dislocation of the right humeral head in relation to the glenohumeral fossa in the anterior location. No confirmed fracture. Soft tissues: Normal. IMPRESSION: There is a dislocation of the right humeral head in relation to the glenohumeral fossa in the anterior location. Radiologic Study #2: Attestation: I personally reviewed and interpreted this imaging study as follows: Imaging: X-Ray Radiologist's impression: Exam(s) XR SHOULDER RT COMP POST REDUC EXAM:? XR SHOULDER RT COMP POST REDUC CLINICAL HISTORY: ? ?reduction. ? TECHNIQUE:? 2D digital imaging was performed. COMPARISON:? CR,XR XR SHOULDER RT COMPLETE 2+V from 02/04/2022 FINDINGS: 3 views Post reduction views reveal successful realignment of the glenohumeral joint.? No obvious fractures evident.? On the outlet view there is a 3 millimeter calcific density adjacent to the posterior aspect of the humeral head.? This is consistent with a loose intra-articular body.? Doubtful for an acute fracture fragment. There is some widening of the AC joint again noted.? This is possibly postoperative. IMPRESSION: Successful realignment of the glenohumeral joint.? No obvious fractures evident. HPI <MEGAN Burger - Last Filed: 02/06/22 08:20> General Mode of arrival: ambulatory. Date/Time Provider Initiated Documentation: 02/04/22 21:22. Limitations to Documentation: no limitations. Information obtained by: patient and family. History of Present Illness 61 year old M presents to the emergency department with the chief complaint of R shoulder pain/Fall, described as severe, with intensity rated at 8. Quality is described as aching, and is localized to the right and upper extremity. Patient reports no radiation. Patient started experiencing this hour(s) (1) and it has been constant. No relieving factors improve symptom(s), Movement worsens symptoms . Patient notes no other symptoms.. Patient did receive the following treatments prior to arrival, none Related Data Home Medications Medication Instructions Recorded Confirmed multivitamin 1 ea PO DAILY 11/23/12 02/04/22 lisinopril 10 1 tab PO DAILY #90 tab-caps 04/10/21 02/04/22 mg-hydrochlorothiazide 12.5 mg tablet cyanocobalamin (vitamin B-12) 1,000 mcg PO DAILY 04/23/21 02/04/22 1,000 mcg tablet (Vitamin B-12) glutamine 500 mg tablet 500 mg PO BID 06/06/21 02/04/22 (L-Glutamine) acetaminophen 500 mg tablet 1,000 mg PO TID PRN 10/15/21 02/04/22 magnesium oxide 500 mg capsule 500 mg PO DAILY 10/28/21 02/04/22 sildenafil 50 mg tablet (Viagra) 50 mg PO DAILY PRN sexual activity 11/05/21 02/04/22 #30 tabs psyllium husk 3.4 gram/5.4 gram 1 tbsp PO TID 11/21/21 02/04/22 oral powder (Metamucil) omeprazole 20 mg capsule,delayed 20 mg PO DAILY #90 caps 12/03/21 02/04/22 release Previous Rx's Medication Instructions Recorded lisinopril 10 1 tab PO DAILY #90 tab-caps 04/10/21 mg-hydrochlorothiazide 12.5 mg tablet sildenafil 50 mg tablet (Viagra) 50 mg PO DAILY PRN sexual activity 11/05/21 #30 tabs omeprazole 20 mg capsule,delayed 20 mg PO DAILY #90 caps 12/03/21 release Allergies Allergy/AdvReac Type Severity Reaction Status Date / Time amlodipine AdvReac Intermediate Swelling Verified 02/04/22 21:27 of feet on 5 mg latex AdvReac Verified 02/04/22 21:27 Review of Systems <MEGAN Burger - Last Filed: 02/06/22 08:20> Constitutional Constitutional: Denies headache(s) and Denies weakness Eyes Eyes: Denies change in vision ENT Ears, Nose, Mouth, and Throat: Denies headache(s) and Denies neck pain Cardiovascular Cardiovascular: Denies chest pain and Denies dyspnea Respiratory Respiratory: Denies dyspnea Gastrointestinal Gastrointestinal: Denies nausea and Denies vomiting Musculoskeletal Musculoskeletal: Reports back pain, Reports arthralgias, Denies joint swelling, Denies neck pain, Denies numbness, Reports stiffness and Reports tingling Integumentary/Breasts Skin/Breast: Denies rash Neurologic Neurologic: Denies headache(s), Denies numbness, Reports tingling and Denies weakness Hematologic/Lymphatic Hematologic/Lymphatic: Denies easy bleeding and Denies easy bruising PFSH <MEGAN Burger - Last Filed: 02/06/22 08:20> All Active Problems (Updated 02/04/22 @ 22:43 by MEGAN Burger) Anterior dislocation of right shoulder (Acute) Helicobacter pylori gastritis (Acute) Internal hemorrhoid, bleeding (Acute) Iron deficiency anemia due to chronic blood loss (Acute) Rectal bleeding (Acute ~2013) Essential hypertension (Chronic) BPH without urinary obstruction (Chronic) Osteoarthritis of right knee (Chronic) Right lumbar radiculopathy (Chronic) GERD (gastroesophageal reflux disease) (Chronic) Hyperlipidemia (Chronic) Prediabetes (Chronic) Medical History COVID-19 06/20/21 Surgical History Carpal tunnel syndrome of left wrist (10/15/21) S/P ECTR: 10/15/2021 Carpal tunnel syndrome of right wrist (05/15/21) S/P ECTR: 05/15/2021 History of esophagogastroduodenoscopy (EGD) (07/29/13) History of lumbar surgery 10/2019-s/p decompression l3-L5, [facility]sx at [facility] 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 Sister Breast cancer Brother Essential hypertension Brother No problems noted. Maternal Grandfather Heart disease Maternal Grandmother Bladder cancer Heart disease Paternal Grandfather No problems noted. Paternal Grandmother Heart disease Daughter No problems noted. Daughter No problems noted. Daughter No problems noted. Son No problems noted. Son No problems noted. Son No problems noted. Social History Smoking/Tobacco Use Status: Never Smoking risk assessment performed?: Yes Alcohol Intake: current Alcohol Intake frequency: a few times a month Drug use: Never Substance use type: does not use Household members: significant other Housing: house Number of Children: 6 number of grandchildren: 5 Communication Needs: None Do you need help understanding health information?: Rarely current occupation: Mailman Pets and animals: No Sexually active: Yes Do you think of yourself as: straight/heterosexual Current gender identity: male What is your relationship status?: living with partner How often do you talk on the phone with friends or family?: three or more times per week How often do you get together with friends or relatives?: once per week How often do you attend mandaeism or nondenominational services?: 4 or more times per year Do you belong to any clubs or organized social groups?: no Panel score (0-1 are the most socially isolated patients): 3 What type of physical activity do you participate in: walking Duration: < 15 minutes/day Frequency: 3-4 times per week Fabiola/L[employer]-Day: Lutheran Seatbelt use: always Helmet use: Yes Helmet use: always Drive intox or ride w/intox flatbed company driver: No Do you feel safe at home: Yes Do you feel safe in your relationship?: Yes Exam <MEGAN Burgre - Last Filed: 02/06/22 08:20> Const General: cooperative, healthy appearing and no acute distress Orientation: alert, awake and oriented x3 HENMT Head: normal to inspection, normocephalic and atraumatic Face and sinus: normal facial exam Mouth: moist mucous membranes Throat: posterior oropharynx normal Eyes General: appearance normal, both eyes and all related structures Conjunctivae: conjunctivae normal Neck Neck: normal visual inspection, full ROM, trachea midline, supple and nontender Chest Chest: normal inspection of the chest and normal palpation of entire chest wall Resp Effort & Inspection: normal respiratory effort and able to speak in complete sentences Auscultation: clear to auscultation bilaterally Cardio Rate: regular rate Rhythm: regular rhythm GI Palpation: soft and nontender Back/Spine/Pelvis Back: No back tenderness Skin General skin exam: no rashes or lesions noted Neuro General: patient alert, patient awake, patient oriented x3, moves all extremities and no focal motor deficits Cognition: normal cognition Speech: speech normal Gait: normal gait Motor: muscle tone normal throughout Sensory Exam: no sensory deficits noted Extrem General: capillary refill normal Other: Bilateral anterior knees with mild abrasions. Right shoulder held in adduction and, there is a deformity in the place of the humeral head. In the rest of the arm he has full range of motion, neuro, vascular, tendon intact. Normal capillary refill and radial pulse. Psych Appearance: grossly normal Mental Status: mental status grossly normal Procedures <MEGAN Burger - Last Filed: 02/06/22 08:20> Orthopedic Joint Reduction Joint #1: Time Out Performed: Yes Side: right Joint Reduction Location: shoulder Analgesia: procedural sedation Shoulder Technique Used (if applicable): external rotation (And abduction with supination) Post-reduction neuro exam: intact and no change Post-reduction vascular: intact and no change Post Reduction X-Ray Obtained: Yes Post Reduction X-Ray Results: reduced Splint Applied: Yes (Sling) Patient Tolerated Procedure: well and no complications <Daniel Mota MD - Last Filed: 02/04/22 22:46> Procedural Sedation Indication: fracture/dislocation reduction ASA Class: II Time of Last PO Intake: 18:00 Preparation: diagnostic cardiac sonographer applied, pulse oximeter, capnometry used and supplemental O2 applied IV Propofol dose (mg): 120 Complications: hypoxia (patient with approximately 30 seconds of saturations in the mid 80's and quickly returned to high 90's with nasal cannula oxygen) Interventions: oxygen applied
[2022-02-04] MEDS: HYDROmorphone 2 MG/ML SYR IVP (22:15)
[2022-02-04] MEDS: Propofol 200 MG/20 ML VIAL 120 MG IVP (22:25)
--- NOTE | 2022-02-04 22:30 | DI.RAD_ITS ---
Exam(s) XR SHOULDER RT COMP POST REDUC EXAM: XR SHOULDER RT COMP POST REDUC CLINICAL HISTORY: ?reduction. TECHNIQUE: 2D digital imaging was performed. COMPARISON: CR,XR XR SHOULDER RT COMPLETE 2+V from 02/04/2022 FINDINGS: 3 views Post reduction views reveal successful realignment of the glenohumeral joint. No obvious fractures e vident. On the outlet view there is a 3 millimeter calcific density adjacent to the posterior aspect of the humeral head. This is consistent with a loose intra-articular body. Doubtful for an acute f racture fragment. There is some widening of the AC joint again noted. This is possibly postoperative. IMPRESSION: Successful realignment of the glenohumeral joint. No obvious fractures evident. DATA REPOSITORY: RADIATION DOSE DELIVERED:
--- NOTE | 2022-02-04 22:38 | DI.VRAD_ITS ---
PROCEDURE INFORMATION: Exam: XR Right Shoulder Exam date and time: 02/04/2022 9:55 PM Age: 61 years old Clinical indication: Injury or trauma; Work related; Blunt trauma (contusions or hematomas); Right; Injury date: 02/04/22; Injury details: Fall on shoulder TECHNIQUE: Imaging protocol: Radiologic exam of the Right shoulder. Views: 2 or more views. COMPARISON: CR XR SHOULDER RT COMPLETE 2+V 08/02/2019 10:25 AM FINDINGS: Bones/joints: There is a dislocation of the right humeral head in relation to the glenohumeral fossa in the anterior location. No confirmed fracture. Soft tissues: Normal. IMPRESSION: There is a dislocation of the right humeral head in relation to the glenohumeral fossa in the anterior location. Dictated and Authenticated by: Hakeem Kaiser MD. Ordering:EMEKA Kirk MD
--- NOTE | 2022-02-04 23:00 | DI.VRAD_ITS ---
PROCEDURE INFORMATION: Exam: XR Right Shoulder Exam date and time: 02/04/2022 10:19 PM Age: 61 years old Clinical indication: Other: ? Reduction TECHNIQUE: Imaging protocol: Radiologic exam of the Right shoulder. Views: 2 or more views. COMPARISON: CR XR SHOULDER RT COMPLETE 2+V 02/04/2022 9:55 PM FINDINGS: Bones/joints: Postreduction radiographs revealed appropriate reduction of the previously noted anterior right shoulder dislocation. No visualized fracture. There is widening of the acromioclavicular joint, which may be postoperative in nature versus shoulder separation. Soft tissues: Normal. IMPRESSION: 1. Postreduction radiographs revealed appropriate reduction of the previously noted anterior right shoulder dislocation. 2. There is widening of the acromioclavicular joint, which may be postoperative in nature versus shoulder separation. Correlation with clinical history is recommended. Dictated and Authenticated by: Hakeem Kaiser MD. Ordering:KIMBERLYN Sanchez MD
--- NOTE | 2022-02-04 23:43 | NUR.NOTE ---
able to walk around in room easily.Nursing Note:
== END 2022-02-04 23:40 | disposition home or self-care (01) ==
PROVIDERS: Emergency Provider Physician Assistant; PCP Nurse Practitioner Family
DX: S43.014A Anterior dislocation of right humerus, initial encounter (principal); W01.0XXA Fall on same level from slipping, tripping and stumbling without subsequent striking against object, initial encounter; Y99.0 Civilian activity done for income or pay; S80.211A Abrasion, right knee, initial encounter; S80.212A Abrasion, left knee, initial encounter
CPT/HCPCS: 23650; 73030; 96374; 96375; 99284; J1170; J2704

== ENCOUNTER 2022-03-24 01:43 | Outpatient (CLI) | payer OTHER, SELFPAY ==
--- NOTE | 2022-03-24 07:00 | DI.MRI_ITS ---
Exam(s) MR UPPER JOINT RT WO EXAM: MR UPPER JOINT RT WO CLINICAL HISTORY: ASSESS ROTATOR CUFF TEAR,rupture rt proximal biceps tendon,ant dislocation,. TECHNIQUE: Multiplanar multisequence MRI was performed. COMPARISON: MR MR UPPER JOINT RT WO from 08/08/2019 CR,XR XR SHOULDER RT COMP POST REDUC from 02/04/2022 FINDINGS: BONES: There is no fracture or contusion pattern. JOINTS: There are postsurgical and/or degenerative changes of the acromioclavicular joint. There are degenerative changes seen at the glenohumeral joint. The humeral head appears superiorly subluxed r elative to the glenoid. TENDONS: Supraspinatus: There is a complete tear of the supraspinatus tendon with retraction to the level of t he acromioclavicular joint. Infraspinatus: There is a complete tear of the infraspinatus tendon with retraction to the level of t he glenohumeral joint. Subscapularis: There is a large tear of the subscapularis tendon. There does appear to be some retra ction of the tendon. Teres Minor: Unremarkable. Biceps and Strunk: The biceps tendon appears medially dislocated. MUSCLES: There is minimal atrophy of the supraspinatus, infraspinatus and teres minor muscles. The s ubscapularis muscle appears well maintained. GLENOID LABRUM: Unremarkable on this noncontrast examination. SOFT TISSUES: There is edema seen in the soft tissues around the shoulder. LIGAMENTS: Unremarkable. OTHER: There is fluid seen in the subacromial subdeltoid bursa. IMPRESSION: 1. There are complete tears with retraction of the supraspinatus and infraspinatus tendons. There is a large tear of the subscapularis tendon. 2. Mild fatty atrophy of the supraspinatus, infraspinatus and teres minor muscles. 3. Degenerative and or postsurgical changes at the acromioclavicular joint. Degenerative changes see n at the glenohumeral joint. 4. Superiorly placed humeral head relative to the glenoid likely secondary to the large rotator cuff tear. DATA REPOSITORY:
== END 2022-03-24 02:03 ==
PROVIDERS: PCP Nurse Practitioner Family; Visit Provider Student in an Organized Health Care Education/Training Program
DX: S46.011A Strain of muscle(s) and tendon(s) of the rotator cuff of right shoulder, initial encounter (principal); S46.211A Strain of muscle, fascia and tendon of other parts of biceps, right arm, initial encounter; S43.014A Anterior dislocation of right humerus, initial encounter; M19.011 Primary osteoarthritis, right shoulder
CPT/HCPCS: 73221

== ENCOUNTER 2022-03-26 13:17 | Outpatient (REF) | payer OTHER, SELFPAY ==
[2022-03-27 13:43] LABS: Helicobacter pylori Ag, Feces Negative (Negative)
== END 2022-03-26 13:18 | disposition home or self-care (01) ==
LOC: LBN 13:17
PROVIDERS: PCP Nurse Practitioner Family; Visit Provider Surgery
DX: B96.81 Helicobacter pylori [H. pylori] as the cause of diseases classified elsewhere (principal); D50.0 Iron deficiency anemia secondary to blood loss (chronic); K21.9 Gastro-esophageal reflux disease without esophagitis; K29.70 Gastritis, unspecified, without bleeding; K44.9 Diaphragmatic hernia without obstruction or gangrene; K62.5 Hemorrhage of anus and rectum; K64.8 Other hemorrhoids
CPT/HCPCS: 87338

== ENCOUNTER 2022-04-24 18:12 | Inpatient (IN) | payer OTHER, SELFPAY ==
[2022-04-24] VITALS (14 sets, daily range): BP systolic 121–136; BP diastolic 68–88; PULSE 54–72; RESP 13–20; TEMP 35.1–36.6; O2SAT 94–98; BMI 37.3
--- NOTE | 2022-04-24 06:33 | ANES.PREOP_ITS ---
General Info Date of Service Date Performed: 04/24/22 Height: 6 ft 1 in Weight: 128.367 kg Body Mass Index (BMI): 37.3 Surgical Procedure: Operation Date: 04/24/22 13:10 Proposed Procedure Side Surgeon p Shoulder Rotator Cuff Arthroscopic w/Extensive Debridement, Subacromial Decompression, Labral Repair, Possible Allograft Superior Capsular Reconstruction Right Ismael Ragland MD Meds Allergies and Home Medications Allergies Allergy/AdvReac Type Severity Reaction Status Date / Time amlodipine AdvReac Intermediate Swelling Verified 04/24/22 11:24 of feet on 5 mg latex AdvReac Verified 04/24/22 11:24 Home Medication Medication Instructions Recorded multivitamin 1 ea PO DAILY 11/23/12 cyanocobalamin (vitamin B-12) 1,000 mcg PO DAILY 04/23/21 1,000 mcg tablet (Vitamin B-12) glutamine 500 mg tablet 500 mg PO BID 06/06/21 (L-Glutamine) acetaminophen 500 mg tablet 1,000 mg PO TID PRN 10/15/21 magnesium oxide 500 mg capsule 500 mg PO DAILY 10/28/21 sildenafil 50 mg tablet (Viagra) 50 mg PO DAILY PRN sexual activity 11/05/21 #30 tabs psyllium husk 3.4 gram/5.4 gram 1 tbsp PO TID 11/21/21 oral powder (Metamucil) omeprazole 20 mg capsule,delayed 20 mg PO DAILY #90 caps 12/03/21 release lisinopril 10 1 tab PO DAILY #90 tab-caps 03/31/22 mg-hydrochlorothiazide 12.5 mg tablet aspirin 81 mg tablet,delayed 81 mg PO DAILY prevent blood clot 04/24/22 release 7 days #7 tabs naproxen 250 mg tablet 250 - 500 mg PO BID PRN #40 tabs 04/24/22 oxycodone 5 mg tablet 5 - 10 mg PO Q4H PRN moderate to 04/24/22 severe pain #18 tabs Current Visit Medications: Current Medications Generic Name Dose Route Start Last Admin Trade Name Freq PRN Reason Stop Dose Admin Ringer's Solution 1,000 mls @ 30 mls/hr 04/24/22 06:00 IV 05/23/22 23:59 INFUSION CHRISTIANO Cefazolin Sodium 3,000 mg/ 100 mls @ 200 mls/hr 04/24/22 06:00 Sodium Chloride IVPB 04/24/22 16:00 PREOP CHRISTIANO IV Miscellaneous Supplies 1 each 04/24/22 06:00 Iv Access IV 05/23/22 23:59 DIRECTED CHRISTIANO Sodium Chloride 0 ml 04/24/22 06:00 Normal Saline Flush 10 Ml Syr IV 05/23/22 23:59 PRN PRN Sodium Chloride 0 ml 04/24/22 06:00 Normal Saline 10 Ml Vial IJ 05/23/22 23:59 DIRECTED PRN Sterile Water 0 ml 04/24/22 06:00 Water,Injection,Sterile 10 Ml Vial IJ 05/23/22 23:59 DIRECTED PRN PFSH Active Problems Active Problems: Problem Status Onset Code Metatarsalgia M77.40 Pain, foot M79.673 Nail dystrophy L60.3 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 Rupture of right proximal biceps tendon 07/28/19 S46.211A Rotator cuff tear, right M75.101 Helicobacter pylori gastritis K29.70, B96.81 Internal hemorrhoid, bleeding K64.8 Iron deficiency anemia due to chronic blood loss D50.0 Rectal bleeding ~2013 K62.5 Essential hypertension I10 BPH without urinary obstruction N40.0 Osteoarthritis of right knee M17.11 Right lumbar radiculopathy M54.16 GERD (gastroesophageal reflux disease) K21.9 Hyperlipidemia E78.5 Prediabetes R73.03 Medical History Medical History COVID-19 06/20/21 Surgical History Surgical History Carpal tunnel syndrome of left wrist (10/15/21) S/P ECTR: 10/15/2021 Carpal tunnel syndrome of right wrist (05/15/21) S/P ECTR: 05/15/2021 History of esophagogastroduodenoscopy (EGD) (07/29/13) History of lumbar surgery 10/2019-s/p decompression l3-L5, neurosx at [facility] History of total right hip replacement (04/24/21) S/P ear surgery ear drum removal and replacement S/P right knee arthroscopy (~10/2000) meniscus repair S/P tonsillectomy Tobacco Smoking/Tobacco Use Status: Never Passive smoking exposure: Yes Alcohol Alcohol Intake: current Alcohol intake frequency: a few times a month Substance Use Substance use: Never Substance use type: does not use Vital Signs and Lab Results Vital Signs Most Recent Vital Signs in EMR: Temp Pulse Resp BP Pulse Ox 36.1 C L 72 16 136/88 98 04/24/22 11:27 04/24/22 11:27 04/24/22 11:27 04/24/22 11:27 04/24/22 11:27 Lab Results Blood Type / Crossmatch: No Data to Display Complete Blood Count: No Data to Display Complete Metabolic Panel: No Data to Display Liver Function Panel: No Data to Display Coagulation Panel: No Data to Display Cardiac Panel: No Data to Display Arterial Blood Gas: No Data to Display Venous Blood Gas: No Data to Display Pancreas Panel: No Data to Display Thyroid Panel: No Data to Display Infectious Disease: No Data to Display Blood Cultures: No Data to Display Toxicology Panel: No Data to Display Imaging and Studies Imaging and Studies Study information below may be from another EMR and interpreted by another provider. Please see original notes in EMR for more complete details. EKG Summary: 2020: sinus rhythm. Stress Test Summary: 2020: no symptoms of ischemia, non-diagnostic EKG. MPI EF 42%, no WMA, no evidence of ischemia. Anesthesia Assessment and Plan Anesthesia History Personal History: No History of Anesthesia Complications Family History: No Family History of Anesthesia Complications Exercise Tolerance Exercise Tolerance: Metabolic Equivalents>4 Cardiac & Pulmonary Exam Cardiac Exam: Normal S1/S2 Heart Sounds Pulmonary Exam: Clear Bilateral Breath Sounds Implantable Cardiac Device Does patient have a Pacemaker or an ICD?: No Airway Exam Known Difficult Airway: No Mallampati Class: 2 Mouth Opening: Normal (> 3cm) Thyromental Distance: Greater than 3 cm Neck Range of Motion: Limited ROM Neck Circumference: Normal Teeth Condition: Normal Dentition ASA Classification ASA Score: ASA 2 Emergency Case?: No NPO Status NPO Status: NPO Clears >2 hours, Solids >8 hours Anesthesia Plan Resuscitation Status: Full Code Anesthesia Technique: General Anesthesia Airway Planned: Endotracheal Tube Monitors Used: Standard Monitors Preoperative Comments:: 61 yo male for shoulder scope. Sig PMHx: low back pain (l3-5 right facetectomy), HTN (lisinopril, hctz), GERD (omeprazole), never smoker, occ EtOH, neck pain, low iron. Previous Anes: - glide S4 grade 1, not masked. - colo, prop, natural airway, no issues. Plan: margarita FRANCIS block due to nerve injury associated with recent fall and dislocation. Discussed risks of double a nerve block with an existing nerve injury as it can make the nerve injury worse. He understands.
--- NOTE | 2022-04-24 07:59 | W.PM.DSUDISC ---
Date of service: 04/24/22 Time of Service: 16:30 Discharge Plan Disposition Patient Disposition: Home Discharge Details Attending Provider: Ismael Ragland Primary Care Provider: Ragini Tinoco Home Meds and New Rx's Prescriptions: New aspirin 81 mg tablet,delayed release (DR/EC) 81 mg PO DAILY 7 Days Qty: 7 0RF naproxen 250 mg tablet 250 - 500 mg PO BID PRNQty: 40 0RF Rx Instructions: take with a meal oxycodone 5 mg tablet 5 - 10 mg PO Q4H MDD 30 mg PRN (Reason: moderate to severe pain) Qty: 18 0RF Continued L-Glutamine 500 mg tablet 500 mg PO DAILY magnesium oxide 500 mg capsule 500 mg PO DAILY Metamucil 3.4 gram/5.4 gram powder 1 tbsp PO TID Rx Instructions: mix into at least 8 oz of water or juice before administering multivitamin 1 EACH tablet 1 ea PO DAILY sildenafil [Viagra] 50 mg tablet 50 mg PO DAILY PRN (Reason: sexual activity) Qty: 30 2RF Rx Instructions: administer 1 to 4 hours before activity lisinopril-hydrochlorothiazide 10-12.5 mg tablet 1 tab PO DAILY Qty: 90 3RF cyanocobalamin (vitamin B-12) [Vitamin B-12] 1,000 mcg Tablet 1,000 mcg PO DAILY acetaminophen 500 mg tablet 1,000 mg PO TID PRN omeprazole 20 mg capsule,delayed release(DR/EC) 20 mg PO DAILY Qty: 90 4RF Discharge Instructions Additional Instructions: Surgery: Right shoulder arthroscopy with massive rotator cuff repair, extensive debridement, and subacromial decompression. Activity: For 6 weeks, you should keep your arm at your side in a neutral position at all times except for physical therapy. Do not try to lift or raise your arm using your own muscles. You should use the sling whenever you are out of the house. You may have to adjust the abduction pillow or remove it for comfort. At home it is best to remove the sling and rest the arm on a pillow at your side or support the operative side with your other hand. You may allow the arm to dangle at your side. A physical therapy prescription will be sent electronically to begin in about 3 weeks. CONSERVATIVE protocol Prescriptions: Aspirin 81 mg take 1 daily to prevent a blood clot for 7 days Naproxen 250 mg take 1-2 every 12 hours with a meal as needed for moderate pain Oxycodone 5 mg take 1-2 every 4-6 hours as needed for severe pain You may use [id number] Tylenol (acetaminophen) as needed for mild pain. These pain medications may be taken all at once or in different combinations as needed. Also, recommend Colace (docusate) as a stool softener as surgery and pain medicine cause constipation. You may try [id number] diphenhydramine (Benadryl) 25-50 mg nightly as a sleep aid Dressings: Remove shoulder bandage after 3 days. Leave the sticky Steri-Strips in place until they fall off or remove them after you shower. Cover the incisions with Band-Aids or leave them open to air. You may shower after 5 days. Follow-up: 10-[address] Ragland You may take off the leg compression stockings this evening at home. You may also leave them on a few days longer if you have a history of leg swelling or edema. Let us know right away if you develop any redness, drainage, fevers, chest pain, or trouble breathing. Do not drink alcohol or drive for at least 24 hours after anesthesia. Please call the office during business hours with any questions or concerns. Discharge Orders Discharge Orders: Discharge Order (Routine); Ordered 04/24/22 Ordered By: Ismael Ragland DS: Diagnosis Discharge Diagnosis (1) Rotator cuff tear, right: Status: Acute
--- NOTE | 2022-04-24 08:00 | ROE_ITS ---
Date of service: 04/24/22 Time of Service: 15:00 Operative Note Operative Note DATE OF PROCEDURE: 04/24/22 PRE-OP DIAGNOSIS: Right: 1. Rotator cuff tear 2. Proximal biceps rupture 3. Dislocation POST-OP DIAGNOSIS: same PROCEDURE: Right 1. Rotator cuff repair, CPT# 50907. This involved repair of the supraspinatus and infraspinatus using anchors and sutures to reattach the rotator cuff back to the footprint of the greater tuberosity. 2. Extensive debridement, CPT# 53721. This involved using arthroscopic hand instruments, power instruments, and radiofrequency instruments to release g lenohumeral adhesions, debride labral fraying, and significant synovitis, and chondromalacia a about the glenohumeral joint working anteriorly, superiorly, and posteriorly as well as resect/smooth the greater tuberosity as part of a tubuloplasty 3. Subacromial decompression with partial acromioplasty, CPT# 98156. This involved using arthroscopic power instruments and a radiofrequency wand to compl ete a bursectomy and smooth the undersurface of the acromion. 4. Manipulation under anesthesia, CPT #98427. This involved guided manipulation restoring normal motion under anesthesia releasing stiffnes s resulting from the dislocation. The offset assistant press operator was medically required in order to help assist in techniques above, which require positioning the arm, holding the arthroscope, and manipulating multiple instruments and sutures at the same time. This cannot be done without the help of an experienced offset assistant press operator. SURGEON: Ismael Ragland MILK POWDER GRINDER: Kinza Roberts ANESTHESIA TYPE: General LMA/ETT and Primary Nerve Block Refer to Anesthesia Record ESTIMATED BLOOD LOSS: 10 PATHOLOGY: none sent COMPLICATIONS: None Patient was transported to: PACU Patient's condition: stable Implants: Arthrex: 4.75mm SwiveLocks x 2 and 5.5mm SwiveLocks x 2 Indications: The patient was diagnosed with the above conditions and appropriately indicated for surgical intervention. Please see complete medical record for details. Findings: Exam under anesthesia: Moderate restricted motion, no instability, restored to about full after manipulation, also without any anterior posterior instability Glenohumeral joint: Proximal biceps previously ruptured. Moderately significant generalized glenohumeral chondromalacia. Significant synovitis throughout. Circumferential labral fraying and degeneration. Moderate degenerative subscapularis partial tearing and thinning without significant exposed lesser tuberosity. Subacromial space: Significant bursitis. Thin veil of bursal rotator cuff remnant tissue covering the entire greater tuberosity, which was removed exposing a massive rotator cuff tear completely from anterior to posterior with chronic fibrinous changes about the greater tuberosity and a very thin veil of rotator cuff tissue with laterally, but minimally retracted. Procedure Description: In the operating room, general anesthesia was induced. Bilateral shoulders were examined. The right shoulder had moderate stiffness. No instability. Given the high rate of frozen shoulder after dislocation, manipulation under anesthesia was done, which readily obtained about full range of motion in all directions forward elevation, abduction, external rotation, and internal rotation with moderate gently achieve releases in all directions. Range of motion was reinforced numerous times in all directions. There is no anterior posterior instability. The patient was positioned in the beachchair position. All bony prominences were well-padded. Preoperative antibiotics were administered. The shoulder was prepped and draped in the usual sterile fashion. The correct patient, procedure, and side of the procedure were all verified prior to incision. Starting through the posterior portal a standard complete diagnostic arthroscopy was performed of the glenohumeral joint including inspection of the long head of the biceps, anterior and superior labrum, subscapularis tendon, supraspinatus and infraspinatus tendons, and axillary recess. The glenoid and humeral head cartilage as well as the posterior labrum were inspected from an anterior viewing portal. Significant findings and interventions noted above. Starting through the posterior portal, the arthroscope was directed into the subacromial space. A lateral 50 yard line lateral portal was created. A combination of power instruments and a radiofrequency ablator were used to debride bursitis anteriorly, posteriorly, and laterally as well as expose and smooth bone spurring on the undersurface of the acromion. The coracoacromial ligament was preserved. The bursectomy was completed viewing laterally and working from posteriorly and the rotator cuff was thoroughly inspected with findings noted above. The 50 yard line lateral portal was then changed more lateral to accommodate for the size and better placement for the repair with a new portal established. The massive rotator cuff tear from anterior posterior was thoroughly inspected and identified and debrided of margins. Involve the upper margin subscapularis, biceps was previously ruptured, entire supraspinatus, and a large amount of the infraspinatus. The rotator cuff was still veiled over the majority of the greater tuberosity remarkably from anterior to posterior and fairly far laterally. This thin veil of rotator cuff and bursal scarring was easily resected revealing the magnitude of the tear. The rotator cuff throughout was fairly thinned correlating with the MRI. The tissue was debrided to a stable margin. There was surprisingly excellent tissue available throughout for repair double row reduction and compression across the greater tuberosity. The greater tuberosity was thoroughly debrided of what appeared to be chronic fibrinous changes from anterior superior to posterior and from the medial footprint laterally including a tuboplasty reducing the bald yet prominent greater tuberosity. There was a depression posterior superiorly corresponding with the Hill-Sachs lesion from dislocation. There was significant softening of the bone throughout the entirety greater tuberosity either from this injury or reflecting more chronicity of rotator cuff pathology. The medial row was established using the undersized punch with 4.75 mm swivel lock anchors loaded with FiberTape. Each of the 4 FiberTape ends was shuttled through the appropriate level of the rotator cuff. The self retrieving suture passer was then used to place a suture tape FiberLink in cinch mode through the anteriormost tissue about what would have been the biceps and rotator interval anterior to the tapes and posterior to these tapes. An anterior and posterior medial row FiberTape was also retrieved out laterally. Arm position was optimized and provisional reduction to a lateral position confirmed using the rigid clear insert from the Yeny cannula. The undersized punch used again with extremely soft bone and an even larger 5.5 mm SwiveLock anchor was loaded with all 4 sutures, which were individually tensioned appropriately, and the anchor placed into the bone for an anterior lateral anchor. This was repeated similarly with an additional 2 suture tape FiberLink's about the posterior medial row tapes incorporating the infraspinatus far posteriorly and secured to a posterior lateral 5.5 mm SwiveLock anchor. All anchors were tested with reasonable fixation strength. The repair had remarkably good tissue coverage across the prepared greater tuberosity from far anterior spanning superior, to far posterior. The repair was stable through motion and superior migration testing. The shoulder was drained of arthroscopic fluid. All portal sites were copiously irrigated. These incisions were closed using 3-0 Monocryl in a buried fashion and then covered with Mastisol, Steri-Strips, Xeroform, dry gauze, and ABDs. The dressings were covered and secured with Medipore tape. The operative extremity was placed into a sling for immobilization. The patient awoke from anesthesia without complication and was transferred to the recovery room in a stable condition.
[2022-04-24] MEDS: Lactated Ringers 1,000 ML 30 ML IV (12:02)
[2022-04-24] MEDS: ceFAZolin 3,000 MG in Normal Saline 100 ML 200 MG IVPB (14:20)
[2022-04-24] MEDS: EPINEPHrine 30 MG/30 ML VIAL ×2 (14:30→17:00)
[2022-04-24] MEDS: Bupivacaine 0.5% Pres-Free W/EPI 30 ML VIAL (15:13)
[2022-04-24] MEDS: HYDROmorphone 2 MG/ML SYR IVP ×4 (16:58→17:36)
--- NOTE | 2022-04-24 17:29 | W.ANESPOSTOP ---
Postoperative Evaluation Date, Time and Location Date Performed: 04/24/22 Time Performed: 17:29 Patient Location: PACU Vital Signs Most Recent Imported Vital Signs: Most Recent Vital Signs Temp Pulse Resp BP Pulse Ox 36.5 C 62 14 124/68 96 04/24/22 16:45 04/24/22 16:45 04/24/22 16:45 04/24/22 16:45 04/24/22 16:45 Pain Score Most Recent Pain Score: Most Recent Pain Score Pain Level 0 04/24/22 16:45 Assessment Mental Status: Awake (Alert & Oriented to Patient Baseline) Airway and Respiratory Function: Patent airway with normal (patient baseline) respiratory exam Cardiovascular Function: Hemodynamically Stable Hydration Status: Adequately Hydrated Nausea & Vomiting: No Nausea or Vomiting Pain: Pain is tolerable per patient Peripheral Nerve Block: Patient did not receive a nerve block
== END 2022-04-24 20:51 | disposition home or self-care (01) | DRG 512 ==
LOC: MS 18:21
PROVIDERS: Admitting Provider Student in an Organized Health Care Education/Training Program; PCP Nurse Practitioner Family; Visit Provider Student in an Organized Health Care Education/Training Program
PROC: 0LQ14ZZ Repair Right Shoulder Tendon, Percutaneous Endoscopic Approach (ICD-10-PCS; CPT 29827; principal; 2022-04-24 13:00)
DX: S43.084A Other dislocation of right shoulder joint, initial encounter (principal); S46.011A Strain of muscle(s) and tendon(s) of the rotator cuff of right shoulder, initial encounter; S46.111A Strain of muscle, fascia and tendon of long head of biceps, right arm, initial encounter; X58.XXXA Exposure to other specified factors, initial encounter; M75.51 Bursitis of right shoulder; S44.91XA Injury of unspecified nerve at shoulder and upper arm level, right arm, initial encounter; D50.0 Iron deficiency anemia secondary to blood loss (chronic); I10 Essential (primary) hypertension; N40.0 Benign prostatic hyperplasia without lower urinary tract symptoms; M17.11 Unilateral primary osteoarthritis, right knee; K21.9 Gastro-esophageal reflux disease without esophagitis; E78.5 Hyperlipidemia, unspecified; R73.03 Prediabetes; M54.16 Radiculopathy, lumbar region; Z96.641 Presence of right artificial hip joint
CPT/HCPCS: 29827; 29826; 23700; 01630; J0131; J0690; J1100; J1170; J1885; J2250; J2370; J2405; J2704; J3475

== ENCOUNTER 2022-05-08 09:33 | Outpatient (CLI) | payer OTHER, SELFPAY ==
--- NOTE | 2022-05-08 09:27 | DI.RAD_ITS ---
Exam(s) XR HIP RT AP LAT ONLY EXAM: XR HIP RT AP LAT ONLY CLINICAL HISTORY: f/u RTHR. TECHNIQUE: 2D digital imaging was performed. Two images were obtained. AP and lateral views were ob tained. COMPARISON: CR XR HIP RT COMPLETE AP PELVIS from 05/09/2021 FINDINGS: BONES: There are stable post operative changes present. No fracture or dislocation. JOINTS: The orthopedic hardware is in good position. No evidence of hardware loosening. SOFT TISSUE: Normal. IMPRESSION: Stable postoperative changes. DATA REPOSITORY: RADIATION DOSE DELIVERED:
== END 2022-05-08 09:34 | disposition home or self-care (01) ==
LOC: DIORS 09:33
PROVIDERS: PCP Nurse Practitioner Family; Referring Provider Nurse Practitioner Family; Visit Provider Student in an Organized Health Care Education/Training Program
DX: Z96.641 Presence of right artificial hip joint (principal); Z47.1 Aftercare following joint replacement surgery
CPT/HCPCS: 73502

== ENCOUNTER 2022-08-13 01:36 | Outpatient (CLI) | payer OTHER, SELFPAY ==
--- NOTE | 2022-08-13 06:45 | DI.MRI_ITS ---
Exam(s) MR UPPER JOINT RT WO EXAM: MR UPPER JOINT RT WO CLINICAL HISTORY: PAIN,rt rotator cuff tear,m75.101. TECHNIQUE: Multiplanar multisequence MRI was performed. COMPARISON: CR,XR XR SHOULDER RT COMP POST REDUC from 02/04/2022 CR,XR XR SHOULDER RT COMPLETE 2+V from 02/04/2022 MR MR UPPER JOINT RT WO from 03/24/2022 FINDINGS: BONES: There is no fracture or contusion pattern. Since the prior examination the patient undergone a rotator cuff repair. Orthopedic anchors are seen in the lateral aspect of the humeral head. JOINTS: There again seen degenerative or postsurgical changes at the acromioclavicular joint. There are degenerative changes seen at the glenohumeral joint with cartilage loss and osteophyte at the hum eral head. There is superior subluxation of the humeral head relative to the glenoid. TENDONS: Supraspinatus: There is a complete tear of the supraspinatus tendon with retraction almost to the acr omioclavicular joint. Infraspinatus: There also appears to be a large tear of the infraspinatus tendon. There are possible intact fibers seen at the posterior inferior portion. Subscapularis: Unremarkable. Teres Minor: Unremarkable. Biceps and [place]: The biceps anchor is not well visualized on this examination. This may reflect rep ositioning postsurgically. Please correlate clinically. A biceps anchor tear cannot be excluded. MUSCLES: There is moderate fatty atrophy of the infraspinatus muscle. There is mild to moderate fatty atrophy of the supraspinatus and teres minor muscles. GLENOID LABRUM: Unremarkable on this noncontrast examination. SOFT TISSUES: Unremarkable. LIGAMENTS: Unremarkable. OTHER: There is fluid in the subacromial subdeltoid bursa. IMPRESSION: 1. Interval rotator cuff repair. 2. Findings of full-thickness tears involving the infraspinatus tendon. There do appear to be some in tact fibers posteriorly and inferiorly. 3. Full-thickness complete tear of the supraspinatus tendon with retraction almost to the level of th e acromioclavicular joint. 4. Superior subluxation of the humeral head. Degenerative changes and or postsurgical changes at the acromioclavicular joint. Degenerative changes of the glenohumeral joint. 5. Fatty atrophy involving the infraspinatus, supraspinatus and teres minor muscles. 6. Nonvisualization of the biceps anchor. Please correlate with the patient's surgical history. DATA REPOSITORY:
== END 2022-08-13 01:56 ==
PROVIDERS: PCP Nurse Practitioner Family; Visit Provider Student in an Organized Health Care Education/Training Program
DX: M19.019 Primary osteoarthritis, unspecified shoulder (principal); Z98.890 Other specified postprocedural states; M75.120 Complete rotator cuff tear or rupture of unspecified shoulder, not specified as traumatic
CPT/HCPCS: 73221

== ENCOUNTER 2022-08-20 09:18 | Outpatient (CLI) | payer OTHER, SELFPAY ==
--- NOTE | 2022-08-20 09:00 | DI.RAD_ITS ---
Exam(s) XR SHOULDER RT COMPLETE 2+V EXAM: XR SHOULDER RT COMPLETE 2+V CLINICAL HISTORY: right rotator cuff f/u. TECHNIQUE: 2D digital imaging was performed. Five views. COMPARISON: CR,XR XR SHOULDER RT COMP POST REDUC from 02/04/2022 FINDINGS: BONES: No acute fracture is present. No bony destructive lesion is seen. JOINTS: The humeral head is superiorly positioned with respect to the glenoid consistent with chronic rotator cuff tear. There is some general humeral joint space narrowing and periarticular spurring. SOFT TISSUE: There are now calcifications visible posterior to the humeral head. Related to calcific tendinosis or could be within a joint effusion. IMPRESSION: Degenerative changes and findings consistent with chronic rotator cuff tear. posterior calcification s could be within tendon or joint effusion. DATA REPOSITORY: RADIATION DOSE DELIVERED:
== END 2022-08-20 09:19 | disposition home or self-care (01) ==
LOC: DIORS 09:19
PROVIDERS: PCP Nurse Practitioner Family; Referring Provider Nurse Practitioner Family; Visit Provider Student in an Organized Health Care Education/Training Program
DX: M75.121 Complete rotator cuff tear or rupture of right shoulder, not specified as traumatic (principal); Z47.89 Encounter for other orthopedic aftercare
CPT/HCPCS: 73030

== ENCOUNTER 2022-10-31 01:48 | Outpatient (CLI) | payer OTHER, SELFPAY ==
[2022-10-31 12:20] LABS: HGB 14.7 g/dL (13.5-17.5); MCH 29.3 pg (27.0-33.0); MCHC 32.7 % (32.0-36.0); MCV 90 fL (80-95); MPV 9.1 fL (8.0-11.0); Platelet Count 290 10^3/uL (130-400); RBC 5.01 10^6/uL (4.36-5.78); RDW 15.3 % (11.8-14.1); RDW-SD 51.1 fL; WBC 4.59 10^3/uL (4.4-10.8)
[2022-10-31 12:35] LABS: Hemoglobin A1C 5.7 % (<5.7)
[2022-10-31 12:38] LABS: ALT 29 U/L (16-63); AST 21 U/L (15-37); Albumin 3.6 g/dL (3.4-5.0); Alkaline Phosphatase 64 U/L (46-116); Anion Gap 5.2 mmol/L (3-11); BUN 17 mg/dL (7-18); Bilirubin, Total 0.5 mg/dL (0.2-1.0); CO2 29.8 mmol/L (21.0-32.0); CREATININE 0.8 mg/dL (0.70-1.30); Calcium 9.5 mg/dL (8.5-10.1); Calculated LDL 106 mg/dL (<100); Chloride 102 mmol/L (98-107); Cholesterol 167 mg/dL (<200); Estimated GFR 100.06 (mL/min/1.73m2); Ferritin 50 ng/mL (26-388); Glucose 98 mg/dL (74-106); HDL Cholesterol 56 mg/dL (40-60); Potassium 4.2 mmol/L (3.5-5.1); Sodium 137 mmol/L (136-145); Total Protein 7.3 g/dL (6.4-8.2); Triglyceride 27 mg/dL (<150)
[2022-11-03 10:51] LABS: Hepatitis C Ab w Rflx HCV PCR Negative (Negative)
== END 2022-10-31 01:49 | disposition home or self-care (01) ==
LOC: LOS 01:48
PROVIDERS: PCP Nurse Practitioner Family; Visit Provider Nurse Practitioner Family
DX: Z00.00 Encounter for general adult medical examination without abnormal findings (principal)
CPT/HCPCS: 36415; 80053; 80061; 85027; 86803; 82728; 83036

== ENCOUNTER 2023-05-05 04:33 | Outpatient (CLI) | payer OTHER, SELFPAY ==
[2023-05-05 12:25] LABS: Abs Immature Grans 0.01 10^3/uL (0.0-0.06); Absolute Basophil Count 0.07 10^3/uL (0.0-0.2); Absolute Lymphocyte Count 1.55 10^3/uL (1.2-3.4); Absolute Monocyte Count 0.49 10^3/uL (0.1-0.8); Absolute Neutrophil Count 2.17 10^3/uL (1.2-6.7); Basophils % 1.6; Eosinophils % 2.3; HCT 45.2 % (40.0-50.0); HGB 14.5 g/dL (13.5-17.5); Immature Grans % 0.2; Lymphocytes % 35.3; MCH 30.3 pg (27.0-33.0); MCHC 32.1 % (32.0-36.0); MCV 94 fL (80-95); MPV 9.2 fL (8.0-11.0); Monocytes % 11.2; Neutrophils % 49.4; Platelet Count 274 10^3/uL (130-400); RBC 4.79 10^6/uL (4.36-5.78); RDW 13.1 % (11.8-14.1); RDW-SD 45.3 fL; WBC 4.39 10^3/uL (4.4-10.8)
[2023-05-05 12:37] LABS: Hemoglobin A1C 5.9 % (<5.7)
[2023-05-05 12:47] LABS: Anion Gap 7.6 mmol/L (3-11); BUN 26 mg/dL (7-18); CO2 28.4 mmol/L (21.0-32.0); CREATININE 0.8 mg/dL (0.70-1.30); Calcium 9.1 mg/dL (8.5-10.1); Calculated LDL 106 mg/dL (<100); Chloride 104 mmol/L (98-107); Cholesterol 173 mg/dL (<200); Estimated GFR 99.44 (mL/min/1.73m2); Ferritin 35 ng/mL (26-388); Glucose 107 mg/dL (74-106); HDL Cholesterol 60 mg/dL (40-60); Potassium 4.2 mmol/L (3.5-5.1); Sodium 140 mmol/L (136-145); Triglyceride 35 mg/dL (<150)
[2023-05-05 18:11] LABS: PSA, Screening 0.8 ng/mL (<=4.5)
== END 2023-05-05 04:34 | disposition home or self-care (01) ==
LOC: LOS 04:34
PROVIDERS: PCP Nurse Practitioner Family; Visit Provider Nurse Practitioner Family
DX: Z12.5 Encounter for screening for malignant neoplasm of prostate (principal); Z00.00 Encounter for general adult medical examination without abnormal findings; D50.0 Iron deficiency anemia secondary to blood loss (chronic); I10 Essential (primary) hypertension
CPT/HCPCS: 36415; 80048; 80061; 84153; 82728; 83036; 85025

== ENCOUNTER 2024-05-24 11:23 | Outpatient (CLI) | payer OTHER, SELFPAY ==
--- NOTE | 2024-05-24 11:00 | DI.RAD_ITS ---
Exam(s) XR SHOULDER RT COMPLETE 2+V EXAM: XR SHOULDER RT COMPLETE 2+V CLINICAL HISTORY: F/U RIGHT SHOULDER PAIN. TECHNIQUE: 2D digital imaging was performed. Three views. COMPARISON: CR,XR XR SHOULDER RT COMP POST REDUC from 02/04/2022 CR,XR XR SHOULDER RT COMPLETE 2+V from 02/04/2022 MR MR UPPER JOINT RT WO from 08/13/2022 CR XR SHOULDER RT COMPLETE 2+V from 08/20/2022 FINDINGS: BONES: No acute fracture is present. No bony destructive lesion is seen. JOINTS: No dislocation present. Humeral head is some slightly superiorly positioned with respect to the glenoid but there is improvement from prior exam. There is narrowing of the glenohumeral joint s pace and inferior spurring. There is also spurring at the AC joint and undersurface of acromion. SOFT TISSUE: Normal the calcifications posterior to the humeral head consistent with calcific tendino sis. IMPRESSION: Degenerative changes and calcific tendinosis. DATA REPOSITORY: RADIATION DOSE DELIVERED:
== END 2024-05-24 11:24 | disposition home or self-care (01) ==
LOC: DIORS 11:23
PROVIDERS: PCP Nurse Practitioner Family; Visit Provider Student in an Organized Health Care Education/Training Program
DX: M12.811 Other specific arthropathies, not elsewhere classified, right shoulder
CPT/HCPCS: 73030

== ENCOUNTER 2024-05-30 03:07 | Outpatient (CLI) | payer OTHER, SELFPAY ==
[2024-05-30 12:34] LABS: Hemoglobin A1C 5.8 % (<5.7)
[2024-05-30 12:52] LABS: Anion Gap 7.7 mmol/L (3-11); BUN 18 mg/dL (7-18); CO2 29.3 mmol/L (21.0-32.0); CREATININE 0.9 mg/dL (0.70-1.30); Calcium 9.2 mg/dL (8.5-10.1); Chloride 102 mmol/L (98-107); Estimated GFR 95.37 (mL/min/1.73m2); Glucose 100 mg/dL (74-106); Potassium 4.3 mmol/L (3.5-5.1); Sodium 139 mmol/L (136-145)
== END 2024-05-30 03:08 | disposition home or self-care (01) ==
LOC: LOS 03:07
PROVIDERS: PCP Nurse Practitioner Family; Visit Provider Nurse Practitioner Family
DX: Z00.00 Encounter for general adult medical examination without abnormal findings (principal)
CPT/HCPCS: 36415; 80048; 83036